=== PATIENT | male | born 1945 | race Caucasian/White ===

== ENCOUNTER → 2020-04-01 | Outpatient (CLI) | payer MEDICARE ==
[~2020-04-01] MED LIST: IODINE/POTASS IOD (LUGOLS) BOTTLE TOPICAL ONE
--- NOTE | 2020-04-02 09:30 | NM ---
EXAMINATION TYPE: NM DatScan Brain SPECT DATE OF EXAM: 04/01/2020 COMPARISON: NONE HISTORY: Essential tremor TECHNIQUE: 10 drops of Lugol's solution was administered 1 hour prior to injection as a thyroid bloc ember agent. After the administration of 4.22 mCi I-123 Ioflupane DaTscan. Images obtained 3 hours p ost injection. SPECT images of the brain were acquired with axial and coronal reconstructions. FINDINGS: There is abnormal decreased uptake within the striata. Uptake is asymmetric. IMPRESSION: Abnormal JOSE scan
== END | disposition home or self-care (01) ==
LOC: RADNMMAIN 10:51
PROVIDERS: ATTEND Psychiatry & Neurology Neurology
DX: R94.02 Abnormal brain scan (principal)
CPT/HCPCS: 78803; A9584

== ENCOUNTER → 2020-05-14 | Outpatient (CLI) | payer MEDICARE ==
--- NOTE | 2020-05-14 07:54 | CT ---
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 The ventricles, basal cisterns and sulci overlying the cerebral convexities demonstrate mild enlargem ent. There is no evidence for intracranial hemorrhage or sulcal effacement. There is decreased attenuation about the periventricular white matter and deep white matter of both c erebral hemispheres, compatible with chronic small vessel ischemia. Differential diagnosis does inclu de demyelination. No mass effects are seen.No midline shift. Osseous calvarium is intact. If symptoms persist consider MRI. IMPRESSION: 1. Age related atrophic and chronic small vessel ischemic change without acute intracranial process s een at this time.
== END | disposition home or self-care (01) ==
LOC: RADCTMAIN 06:46
PROVIDERS: ATTEND Psychiatry & Neurology Neurology
DX: I67.82 Cerebral ischemia (principal); G31.1 Senile degeneration of brain, not elsewhere classified; I61.4 Nontraumatic intracerebral hemorrhage in cerebellum
CPT/HCPCS: 70450

== ENCOUNTER → 2021-12-01 | Outpatient (CLI) | payer MEDICARE ==
[2021-12-01 11:21] LABS: Partial Thromboplastin Time 25.7 sec (22.0-30.0); Prothrombin Time 10.9 sec (9.0-12.0)
[2021-12-01 15:36] LABS: Appearance,Urine Clear (Clear); Bilirubin,Urine Negative (Negative); Blood,Urine Negative (Negative); Color,Urine Yellow (Yellow); Ketones,Urine Negative (Negative); Nitrite,Urine Negative (Negative); PH, Urine 5.5 (5.0-8.0); Specific Gravity,Urine 1.017 (1.001-1.030); Urobilinogen,Urine 0.2 (0.2,1.0)
[2021-12-01 16:13] LABS: HCT 47.2 % (39.6-50.0); HGB 15.8 g/dL (13.0-17.0); MCH 30.2 pg (27.0-32.0); MCHC 33.5 g/dL (32.0-37.0); MCV 90.2 fL (80.0-97.0); Mean Platelet Volume 10.2 fL (9.5-12.2); NRBC Per 100 WBC 0 /100 WBCS (0.0-0.0); Platelet Count 156 X 10*3/uL (140-440); RBC 5.23 X 10*6/uL (4.40-5.60); RDW 12.8 % (11.5-14.5); WBC 6.43 X 10*3/uL (4.50-10.00)
[2021-12-01 17:05] LABS: Albumin 4.2 g/dL (3.8-4.9); Albumin/Globulin Ratio 1.66 (1.60-3.17); Anion Gap 12.6 mmol/L (10.00-18.00); BUN/Creat Ratio 16.01 Ratio (12.00-20.00); Blood Urea Nitrogen 22.9 mg/dL (9.0-27.0); Calcium 9.7 mg/dL (8.7-10.3); Carbon Dioxide 22.6 mmol/L (20.0-27.5); Globulin 2.5 g/dL (1.6-3.3); Non-African American GFR(CKD) 46.6 (60.0-200.0); Potassium 4.4 mmol/L (3.5-5.5); Total Bilirubin 0.6 mg/dL (0.30-1.20); Total Protein 6.8 g/dL (6.2-8.2)
== END | disposition home or self-care (01) ==
LOC: LABPAT 10:07
PROVIDERS: ATTEND Orthopaedic Surgery
DX: Z01.818 Encounter for other preprocedural examination (principal); M17.12 Unilateral primary osteoarthritis, left knee
CPT/HCPCS: 80053; 81003; 85027; 85610; 85730; 87070; 93005

== ENCOUNTER → 2021-12-13 | Outpatient (CLI) | payer MEDICARE ==
--- NOTE | 2021-12-13 15:53 | CT ---
CT left lower extremity [facility] protocol HISTORY: Preop left knee arthroplasty, osteoarthritis left knee, M 17.12 Helical acquisition obtained through the left lower extremity in a limited fashion. Coronal sagittal reconstructions performed. Automated exposure control for dose reduction. DLP 553.4 mCi centimeters. No comparisons Incidental note made of a left inguinal hernia which contains bowel. Prostate is enlarged. There are associated calcifications. Osteoarthritic changes noted in the left hip. Left knee shows tricompartmental marginal spurring, sub chondral geode formation, subchondral sclerosis, joint space loss present in the medial compartment. No evident fracture. Osteoarthritic change noted at the ankle. There is a plantar calcaneal spur. Degenerative changes are present at the intertarsal joints. IMPRESSION: Osteoarthritis, exam performed for procedure planning purposes. Additional findings above .
== END | disposition home or self-care (01) ==
LOC: RADCTMAIN 14:21
PROVIDERS: ATTEND Orthopaedic Surgery
DX: Z01.818 Encounter for other preprocedural examination (principal); M17.12 Unilateral primary osteoarthritis, left knee

== ENCOUNTER 2021-12-21 13:59 | Day surgery (SDC) | payer MEDICARE ==
[~2021-12-21 13:59] MED LIST changes: +ACETAMINOPHEN TAB 500 MG TAB PO PRN; +DEXAMETHASONE SOD PHOSPHATE 10 MG/ML 1 ML VIAL IV PRN; +DEXAMETHASONE SOD PHOSPHATE 4 MG/ML 1 ML VIAL IV ONE; +DOCUSATE 100 MG CAP PO PRN; +FAMOTIDINE 20 MG/2 ML VIAL IVP PRN; +HYDROmorphone 0.5 MG/0.5 ML SYRINGE IVP PRN; -IODINE/POTASS IOD (LUGOLS) BOTTLE TOPICAL ONE; +KETOROLAC 15 MG/ML 1 ML VIAL IVP PRN; +LIDOCAINE 1% (10MG/ML) FOR IV START INTRADERMA PRN; +ONDANSETRON 4 MG/2 ML VIAL IVP PRN; +TRANEXAMIC ACID 1,000 MG in SODIUM CHLORIDE 0.9% 100 ML IVPB ONE; +TRANEXAMIC ACID IN NACL,ISO-OS 1,000 MG in SALINE 1 100ML.BAG IVPB PRN; +oxyCODONE ER 10 MG TAB.ER.12H PO PRN
[2021-12-21] MEDS: LACTATED RINGERS 1,000 ML IV SCH (14:13)
[2021-12-21] MEDS ORDERED: fentaNYL (PF) 50 MCG/ML 2 ML AMP IVP ONE (15:07)
[2021-12-21] MEDS ORDERED: MIDAZOLAM 2 MG/2 ML VIAL IVP ONE (15:07)
[2021-12-21] MEDS ORDERED: LIDOCAINE 2% INJ 20 MG/ML (2 ML VIAL) ONE (15:50)
[2021-12-21] MEDS ORDERED: SUCCINYLCHOLINE CHLORIDE 200 MG/10 ML VIAL IV ONE (15:50)
[2021-12-21] MEDS ORDERED: MIDAZOLAM HCL 10 MG/10 ML VIAL ONE (15:50)
[2021-12-21] MEDS ORDERED: ROPIVACAINE 5 MG/ML 30 ML VIAL ONE (15:50)
[2021-12-21] MEDS ORDERED: SODIUM CHLORIDE 0.9% (PF) 10 ML VIAL ONE (15:50)
[2021-12-21] MEDS ORDERED: fentaNYL (PF) 50 MCG/ML 2 ML AMP ONE (15:50)
[2021-12-21] MEDS ORDERED: PROPOFOL 10 MG/ML 20 ML VIAL IV ONE (15:50)
[2021-12-21] MEDS ORDERED: LACTATED RINGERS 1,000 ML IV ONE (16:48)
[2021-12-21] MEDS: ROPIVACAINE/EPI/CLONIDINE/KET 50 ML SYRINGE MISCELLANE PRN ×2 (16:49→17:19)
--- NOTE | 2021-12-21 18:17 | P.ANPRN ---
Procedure Note - Anesthesia - Nerve Block Performed Left Adductor Canal Time Out Performed: Yes (15:06) Date of Procedure: 12/21/21 Procedure Start Time: : Procedure Stop Time: 15:14 Location of Patient: PreOp Indication: Acute Post-Operative Pain, Requested by Surgeon (Dr Sanchez) Preparation: Sterile Prep Position: Supine Catheter: None Needle Types: Pajunk Needle Gauge: 21 Ultrasound used to visualize needle placement: Yes Ultrasound used to observe medication spread: Yes Injectate: 0.5% Ropivacaine (see comment for volume) (15cc) Blood Aspirated: No Pain Paresthesia on Injection Noted: No Resistance on Injection: Normal Image Stored and Saved: Yes Events: Uneventful and Well Tolerated
--- NOTE | 2021-12-21 18:19 | P.ANPRN ---
Procedure Note - Anesthesia - Nerve Block Performed Left iPack Time Out Performed: Yes Date of Procedure: 12/21/21 Procedure Start Time: 15:15 Procedure Stop Time: 15:21 Location of Patient: PreOp Indication: Acute Post-Operative Pain, Requested by Surgeon (Dr Sanchez) Sedation Type: Sedate with meaningful contact maintained Preparation: Sterile Prep Position: Supine Catheter: None Needle Types: Pajunk Needle Gauge: 21 Ultrasound used to visualize needle placement: Yes Ultrasound used to observe medication spread: Yes Injectate: 0.5% Ropivacaine (see comment for volume) (15cc +5cc PF Normal saline) Blood Aspirated: No Pain Paresthesia on Injection Noted: No Resistance on Injection: Normal Image Stored and Saved: Yes Events: Uneventful and Well Tolerated
[2021-12-21] MEDS ORDERED: NALOXONE 0.4 MG/ML 1 ML VIAL IV PRN (19:22)
[2021-12-21] MEDS ORDERED: HYDROcodone/APAP 5-325MG 1 EACH TAB PO PRN ×2 (19:22)
[2021-12-21] MEDS ORDERED: HYDROmorphone 0.5 MG/0.5 ML SYRINGE IVP PRN ×3 (19:22)
[2021-12-21] MEDS ORDERED: hydrOXYzine pamoate 25 MG CAP PO PRN (19:22)
--- NOTE | 2021-12-21 19:50 | XR ---
EXAMINATION TYPE: XR knee limited LT DATE OF EXAM: 12/21/2021 7:44 PM INDICATION: Patient age:Male; 76 years old; Reason for study: Evaluation for Postop abnormality and alignment; COMPARISON: None. TECHNIQUE: The Left knee(s) was examined in 3 projections. Frontal, lateral and oblique. FINDINGS: Left total knee arthroplasty changes, hardware appears intact. No evidence of fracture. Al ignment appears appropriate. Subcutaneous lucencies along the anterior soft tissues most pronounced i n the anterior proximal thigh. Drainage catheter noted. Hardware appears in No evidence of any acute osseous pathology, joint space narrowing, soft tissue swelling, or joint effusion is noted. IMPRESSION: Post left knee arthroplasty changes with subcutaneous gas along the anterior aspect of the proximal l eg and distal radial. Correlate for infection.
--- NOTE | 2021-12-21 19:56 | P.OP ---
Date of Procedure: 12/21/21 Preoperative Diagnosis: 1. Severe varus knee arthritis, left knee 2. Parkinson's disease Postoperative Diagnosis: Same Procedure(s) Performed: Left total knee arthroplasty Implants: 1. [place] Triathlon CR Femur Size #6 2. [place] Triathlon Grulla Tibial Base Size #6 3. [place] Triathlon CS poly Size #10 4. [place] Triathlon all poly patella, Size #35 Anesthesia: GETA, spinal Surgeon: Jaquan Sanchez Senior Program Manager #1: Wilfrido Hdz Estimated Blood Loss (ml): 200 IV fluids (ml): 1,200 Pathology: none sent Condition: stable Disposition: PACU Indications for Procedure: I met with the patient preoperatively in the office setting and discussed treatment of their symptomatic knee arthritis. They failed a long course of nonsurgical treatment and elected to proceed with an elective total knee r eplacement. I discussed the potential risks and complications at length and gave them ample time to ask questions. Risks discussed included: risks from anesthesia, superficial site surgical infection, acute and/or chronic periprosthetic joint infection, delayed wound healing, drainage, wound necrosis, instability, stiffness, stiffness requiring manipulation and/or revision surgery, damage to local blood vessels or nerves, aseptic loosening of the implants, extensor mechanism issues including disruption, patellar maltracking, avascular necrosis etc., continued or worsened knee pain, generalized dissatisfaction with surgical outcome, need for revision surgery, an inability to regain preinjury level of function, DVT, PE, other medical complications, and possibly loss of life or limb. The patient voiced their understanding that while these are the most common complications other less common complications are possible. They provided both their verbal and written consent to go forward with surgery. Operative Findings: After completion of the procedure, but before the final dressing had been placed on the incision I broke scrub. Upon reviewing the implant sheet it was discovered that a right femoral implant was dispensed and had been placed on the patient's left knee. After the dressing was on the knee appeared straight, well-balanced, and the patella tracked midline. I notified anesthesia and told them to keep the patient under anesthesia so I could speak with the family. I immediately spoke with the patient's son Christiano in person. The patient's other son Agustín was called and was placed on speaker phone. I immediately disclosed the mistake to both Christiano and Agustín. We discussed treatment options including revising the right femoral component to a left femoral component versus observation. I offered to revise the femoral implant immediately if they chose as the patient was still under anesthesia. We discussed the main issue would be patellar maltracking, but the patient's patella appeared to track midline. I also spoke with 2 of my mentors from fellowship. I also found a case report of a similar complication where the wrong sided femoral implant was placed during a total knee replacement and the case report showed that the patient did well and was not revised at 5 years (Andressa Lozano et al. Total Knee Arthroplasty Wrong Side Implant. Surg J ([place]). 2018 Nov; 4(3):[id number]-a036). All of this was disclosed to the patient's sons. They were given time to make a decision. Since the patient had excellent balance and patellar tracking and the only potential downside given the triathlon design would be patellar tracking we all agreed to leave the implant in place. A shared decision was made between the patient's son's and myself. The patient's son's requested observation. Description of Procedure: The patient was identified in preoperative holding and the correct operative extremity was verified and marked with a marker. I reviewed the consent form with the patient at length. All of their questions were answered. The patient was given a block by anesthesia. They were then brought back to the operating room. They were transferred onto the operating room table where a general anesthetic, preoperative antibiotics, and tranexamic acid were administered by anesthesia. A tourniquet was applied to the proximal aspect of the operative extremity. The contralateral extremity was padded under the heel and secured to the operating room table with a nonsterile blue towel and tape. The ipsilateral arm was carefully draped across the patient's chest and secured with a pillow and foam. A post was applied over the lateral aspect of the ipsilateral thigh and a bolster was placed under the ipsilateral foot. I verified that the operative extremity was stable and the knee was flexed to 90. The operative extremity was then placed in a leg barr, nonsterile drapes were applied, and the extremity was prepped and draped sterilely in the standard sterile fashion. Prior to starting surgery timeout was performed identifying the correct patient, operative extremity, and procedure. The leg was then elevated, exsanguinated with an Esmarch bandage, and the tourniquet was inflated. An anterior midline incision was made sharply with a scalpel. Once I had dissected deep to the superficial fascial layer medial and lateral flaps were elevated. A medial parapatellar arthrotomy was created. Upon opening the knee joint there were diffuse arthritic changes in all 3 compartments. The anterior horn of the medial meniscus were sharply released and a medial release was performed around the posterior medial corner of the knee to facilitate retractor placement. The fat pad was excised with electrocautery. The patella was found to be severely arthritic and a provisional cut was made with a sagittal saw to facilitate mobilization of the extensor mechanism during the procedure. Remnants of the ACL and PCL were then excised from the notch. 4 mm pins were then placed within the incision in the medial distal femur and proximal tibia. Arrays were applied to the pins and I verified they were completely tightened. The knee was then registered with the [employer] robot and manipulations in implant position were made to balance the knee and opitmize implant position. Using the Louie robotic saw all cuts were made in accordance with our plan. After all bony fragments had been removed the cuts were verified with the planar probe. The tibia was then subluxed forward and sized. The knee was brought into flexion and a lamina rubber tire and tubes supervisor was placed to allow removal of the meniscal remnants both medially and laterally as well as posterior osteophytes. Local anesthetic was then infiltrated around the joint capsule. Trial implants were then placed within the knee. Range of motion and collateral ligament tension was then evaluated. Adjustments in implant size and position were then made accordingly. Once the knee was felt to be appropriately balanced the Louie pins were removed. The patella was then recut, sized, and punched. A trial patellar button was then placed. With the trial components in place, the patella tracked midline. The femur was then drilled and the trial component removed. The trial tibial component was then appropriately rotated, pinned, and prepared for the keel. All trial components were then removed from the knee. The knee was thoroughly irrigated with pulsatile lavage. Cement was prepared via vacuum mixing in a bowl on the back table. I then hand pressurized cement into the femur and tibia and placed the implants beginning with the tibial base tray and poly liner, femoral component, and finally the patellar button. All extruded cement was removed including from the pin sites. Once the cement had hardened the knee was evaluated one final time with the final polyethylene liner in place. The knee had full extension and flexion and felt stable to varus and valgus stress throughout the arc of motion. The tourniquet was released and with the tourniquet down the patella tracked midline. All bleeders were controlled with electrocautery. The knee was then soaked for 3 minutes with a dilute Betadine soak. The knee was thoroughly irrigated using 3 L of sterile saline and pulsatile lavage. A deep drain was placed. The extensor mechanism was then reapproximated using pop off Vicryl sutures followed by a running barbed suture. The knee was then closed in layers with a 0 strata fix for the deep fascial layer, 2-0 strata fix for the superficial subcutaneous layer and Monocryl and Steri-Strips for the skin. A sterile dressing and drain sponge were applied. I verified that all instrument, sponge, and sharp counts were correct. The patient was then transferred off the operating room table, extubated, and brought to recovery having tolerated the procedure well. Wilfrido Hdz PA-C was required as a skilled anesthesiologist assistant certified due to the complexity of the procedure for patient positioning, draping, retraction, placement of hardware, and closure of wound. PLAN: The patient can weight-bear as tolerated on the operative extremity. DVT prophylaxis with aspirin 81 mg twice a day based on preoperative risk stratification. Follow-up in the office in 2 weeks for wound check and x-rays of the knee including an AP and lateral.
[2021-12-21] MEDS ORDERED: ALPRAZolam 0.25 MG TAB PO PRN (21:37)
[2021-12-21] MEDS: CARBIDOPA-LEVODOPA 25-100 MG 1 EACH TAB PO SCH (22:43)
[2021-12-21] MEDS: ASPIRIN 81 MG PO SCH (22:43)
[2021-12-21] MEDS: SENNOSIDES-DOCUSATE SODIUM 1 EACH TAB PO SCH (22:43)
[2021-12-21] MEDS: METOPROLOL TARTRATE 25 MG TAB PO SCH ×2 (22:45→22:50)
[2021-12-22] MEDS: LOSARTAN 50 MG TAB PO SCH (07:55)
[2021-12-22] MEDS: ASPIRIN 81 MG PO SCH ×2 (07:55→22:01)
[2021-12-22] MEDS: METOPROLOL TARTRATE 25 MG TAB PO SCH ×2 (07:56→22:02)
[2021-12-22] MEDS: CARBIDOPA-LEVODOPA 25-100 MG 1 EACH TAB PO SCH ×3 (07:57→22:01)
[2021-12-22 08:43] LABS: Basophils # (A) 0.01 X 10*3/uL (0.00-0.10); Basophils % (A) 0.1 %; Eosinophils # (A) 0 X 10*3/uL (0.04-0.35); Eosinophils % (A) 0 %; HCT 41.8 % (39.6-50.0); HGB 13.5 g/dL (13.0-17.0); Immature Grans, Automated 0.3 %; Lymphocytes # (A) 0.71 X 10*3/uL (0.90-5.00); MCH 29.4 pg (27.0-32.0); MCHC 32.3 g/dL (32.0-37.0); MCV 91.1 fL (80.0-97.0); Monocytes # (A) 0.52 X 10*3/uL (0.20-1.00); Monocytes % (A) 4.4 %; NRBC Per 100 WBC 0 /100 WBCS (0.0-0.0); Neutrophils % (A) 89.2 %; Platelet Count 154 X 10*3/uL (140-440); RBC 4.59 X 10*6/uL (4.40-5.60); RDW 12.7 % (11.5-14.5); WBC 11.88 X 10*3/uL (4.50-10.00)
[2021-12-22] MEDS: hydroCHLOROthiazide 12.5 MG CAP PO SCH (08:45)
[2021-12-22] MEDS ORDERED: hydroCHLOROthiazide 12.5 MG CAP PO SCH (09:00)
--- NOTE | 2021-12-22 09:35 | P.PN ---
Subjective Progress Note Date: 12/22/21 This patient is a 76-year-old male who is status-post left total knee arthroplasty on 12/21/21. Today is post-operative day #1. The patient is examined bedside. He is up to the bedside chair. He states he is expressing minimal pain in the left knee. He is ambulating with a walker with minimal assistance. He is doing well this morning. He denies chest pain, shortness breath, nausea, vomiting. Vital signs stable. Objective - Vital Signs Vital signs: Vital Signs Temp 97.7 F 12/22/21 07:59 Pulse 94 12/22/21 07:59 Resp 18 12/22/21 01:09 BP 99/68 12/22/21 07:59 Pulse Ox 95 12/22/21 07:59 FiO2 Intake & Output 12/21/21 12/22/21 12/22/21 18:59 06:59 18:59 Intake Total 1850 0 Output Total 50 Balance 1800 0 Weight 83.7 kg 83.7 kg Intake: IV 1850 0 Output: Estimated Blood Loss 50 Other: # Voids 1 1 - Exam On examination, patient is sitting up in the bedside chair in no apparent distress. He is alert and oriented 3. On inspection of the left knee, there is a clean, dry, intact OpSite dressing in place. No bleeding or drainage through the dressing. Hemovac drain in place. Very mild swelling of the knee. Motor and sensory function is intact of the left lower extremity. Left lower extremity warm and well perfused with brisk capillary refill distally. Calf is nontender. - Labs CBC & Chem 7: 12/22/21 03:41 Labs: Abnormal Lab Results - Last 24 Hours (Table) 12/22/21 Range/Units 03:41 WBC 11.88 H (4.50-10.00) X 10*3/uL Neutrophils # 10.60 H (1.80-7.70) X 10*3/uL Lymphocytes # 0.71 L (0.90-5.00) X 10*3/uL Eosinophils # 0 L (0.04-0.35) X 10*3/uL Assessment and Plan Assessment: Status-post left total knee arthroplasty on 12/21/21. Post-operative day #1. Plan: - Weightbearing as tolerated on the operative extremity with a walker. - Physical therapy for gait and balance training. - Leave post-operative dressings intact. Hemovac drain will be left in place until tomorrow. - Keep left knee elevated for swelling and pain control. - Aspirin 81mg BID for DVT prophylaxis. - Internal medicine for rm-operative medical management. - Anticipate discharge home with home health care tomorrow.
--- NOTE | 2021-12-22 14:11 | CONS ---
CONSULTATION DATE OF SERVICE: 12/22/2021 REASON FOR CONSULTATION: Advice regarding hypertension and multiple medical issues, requested by Orthopedic Surgery. HISTORY OF PRESENT ILLNESS: This 76-year-old gentleman with a past medical history of hypertension and multiple medical problems was admitted after left total knee joint arthroplasty. The patient tolerated the procedure well. There is no history of any fever, rigor or chills at this time. White count is slightly elevated at 11.38, possibly post-surgical. PAST MEDICAL HISTORY: Reviewed. It includes hypertension. HOME MEDICATIONS: Again reviewed. They include amantadine, olmesartan. Doses and the rest of the medications are noted. ALLERGIES: NONE. FAMILY HISTORY: No history of heart disease or strokes in the family. SOCIAL HISTORY: Previous history of smoking. REVIEW OF SYSTEMS: Fourteen-point review of systems negative except as mentioned earlier. PHYSICAL EXAMINATION: Pulse is 80, blood pressure 140/70, respiration 18. HEENT: Conjunctivae normal. NECK: No jugular venous distention. CARDIOVASCULAR: S1, S2 muffled. RESPIRATION: Breath sounds diminished at the bases. ABDOMEN: Soft, nontender. LEGS: Status post knee surgery. NERVOUS SYSTEM: No focal deficit. SKIN: No ulcer, rash, bleeding. JOINTS: As mentioned earlier. LABS: Reviewed. WBC 11.38. ASSESSMENT: 1. Status post left total knee arthroplasty. 2. Hypertension. 3. Parkinson's disease. RECOMMENDATIONS AND DISCUSSION: In this 76-year-old gentleman who presented with multiple medical issues, I would recommend to continue the current medications, continue the home medications. DVT prophylaxis. Pain management per Orthopedic Surgery. Closely follow with primary physician in the outpatient setting. Further recommendations to follow. MMODL / IJN: [id number] /
[2021-12-22] MEDS: LACTATED RINGERS 1,000 ML IV SCH (17:32)
[2021-12-22] MEDS: SENNOSIDES-DOCUSATE SODIUM 1 EACH TAB PO SCH (22:01)
[2021-12-23 07:48] VITALS: BP 112/71; PULSE 75; RESP 18; TEMP 98.1
[2021-12-23] MEDS: ASPIRIN 81 MG PO SCH (08:25)
[2021-12-23] MEDS: CARBIDOPA-LEVODOPA 25-100 MG 1 EACH TAB PO SCH (08:26)
[2021-12-23] MEDS: hydroCHLOROthiazide 12.5 MG CAP PO SCH (08:26)
[2021-12-23] MEDS: METOPROLOL TARTRATE 25 MG TAB PO SCH (08:26)
[2021-12-23] MEDS: LOSARTAN 50 MG TAB PO SCH (08:28)
--- NOTE | 2021-12-23 08:58 | P.DS ---
Providers Expected date of discharge: 12/23/21 Attending physician: Jaquan Sanchez Consults: 12/21/21 19:22 Consult Physician Routine Consulting Provider: Maryam Mariscal Consult Reason/Comments: medical management Do you want consulting provider notified?: Yes Primary care physician: José Santizo [place] [facility] Course: This is a 76-year-old male who has been followed in our office by Dr. Sanchez for continued complaints of left knee pain due to left knee osteoarthritis. Treatment options were discussed, and patient elected to undergo a left total knee arthroplasty. Patient was seen pre-operatively by Dr. Santizo and cleared for surgery. Patient underwent a left total knee arthroplasty on 12/21/[address] Sanchez. The procedure was performed without complication or sequelae. The patient is doing fairly well postoperatively. Vital signs and labs are stable on postoperative day #2. Patient was examined bedside today. Patient states he is overall doing very well and the pain in his left knee is well-controlled. He has been ambulating with a walker with minimal assistance. Patient is tolerating his diet well. Patient is comfortable being discharged home today. Patient denies chest pain, shortness of breath, nausea, vomiting, fevers, chills. On examination, the patient is sitting up in bed in no apparent distress. He is alert and orientated 3. On inspection of the left knee, there is a clean, dry, intact Opsite dressing in place. Hemovac drain was removed bedside this morning and a new dressing was placed over the drain site. There is no bleeding or drainage the dressing. Patient has good strength and ROM of the left ankle and toes. Motor and sensory function is intact of the left lower extremity. The dorsalis pedis pulse is easily palpable, the left lower extremity is warm and well perfused with brisk capillary refill. Calf is soft and non-tender to palpation. Patient is discharged home with home health care today in good condition, pending medical clearance. Patient will follow-up with Dr. Sanchez in the office in 2 weeks. Please see med rec for accurate list of discharge medication. Plan - Discharge Summary Discharge Rx Participant: Yes New Discharge Prescriptions: New Docusate [Colace] 100 mg PO BID #60 capsule HYDROcodone/APAP 5-325MG [[place] 5-325] 1 - 2 tab PO Q6HR PRN 7 Days #40 tab PRN Reason: Pain Aspirin 81 mg PO BID 30 Days #60 tab Omeprazole 40 mg PO DAILY 30 Days #30 cap No Action Olmesartan/Hydrochlorothiazide [Olmesartan-Hctz 40-12.5 mg Tab] 1 tab PO QAM Carbidopa/Levodopa [Carbidopa-Levodopa 25-100 Tab] 1 tab PO TID amantadine HCL [Amantadine] 100 mg PO TID ALPRAZolam [Xanax] 0.25 mg PO DAILY PRN PRN Reason: Anxiety Metoprolol Tartrate [Lopressor] 25 mg PO BID Discharge Medication List ALPRAZolam [Xanax] 0.25 mg PO DAILY PRN 12/19/21 [History] Carbidopa/Levodopa [Carbidopa-Levodopa 25-100 Tab] 1 tab PO TID 12/19/21 [History] Metoprolol Tartrate [Lopressor] 25 mg PO BID 12/19/21 [History] Olmesartan/Hydrochlorothiazide [Olmesartan-Hctz 40-12.5 mg Tab] 1 tab PO QAM 12/19/21 [History] amantadine HCL [Amantadine] 100 mg PO TID 12/19/21 [History] Aspirin 81 mg PO BID 30 Days #60 tab 12/23/21 [Rx] Docusate [Colace] 100 mg PO BID #60 capsule 12/23/21 [Rx] HYDROcodone/APAP 5-325MG [[place] 5-325] 1 - 2 tab PO Q6HR PRN 7 Days #40 tab 12/23/21 [Rx] Omeprazole 40 mg PO DAILY 30 Days #30 cap 12/23/21 [Rx] Follow up Appointment(s)/Referral(s): [facility] [[facility]] - 1-2 Days ([facility] will call you to schedule your in home physical therapy visits. ) Jaquan Sanchez MD [Medical Doctor] - 01/05/22 1:00 pm Activity/Diet/Wound Care/Special Instructions: Weight bear as tolerated on operative extremity with walker. Keep operative dressing intact until follow-up appointment in the office. Call the office if dressing becomes saturated or falls off. Take pain medications as prescribed. Take aspirin 81mg BID x 4 weeks for blood clot prevention. Follow-up with Dr. Sanchez in the office in two weeks. Call the office with any questions or concerns, Discharge Disposition: HOME WITH HOME HEALTH SERVICES
--- NOTE | 2021-12-23 18:06 | P.PN ---
Subjective Progress Note Date: 12/23/21 This is a 76 year old male admitted under orthopedic services and is status post left knee total arthroplasty. Patient reports he is being discharged today and awaiting his son to come pick him up. Patient is afebrile and denies chest pain or shortness of breath. Patient is tolerating diet and denies nausea or vomiting. Patient did have a bowel movement yesterday. Patient with some mild left lower extremity swelling noted on exam and patient encouraged to elevate lower extremities while a rest, monitor fluid intake, and follow up with primary care provider this week. Review of systems: Constitutional: No reports of fatigue, fever, or chills Cardiovascular: No reports of chest pain or palpitations Respiratory: No reports of shortness of breath or cough GI: reports of nausea, no reports of of vomiting, patient reports bowel movement : No reports of dysuria or retention Neurovascular: no reports of generalized weakness All medications have been reviewed PHYSICAL EXAMINATION: GENERAL: The patient is alert and oriented x4, Well developed, well nourished. HEENT: Pupils are round and equally reacting to light. EOMI. no scleral icterus. No conjunctival pallor. Normocephalic, atraumatic. No pharyngeal erythema. No thyromegaly. CARDIOVASCULAR: S1 and S2 muffled PULMONARY: diminished breath sounds bilaterally with no wheezing or rhonchi noted. ABDOMEN: soft. Nontender on exam. obese. non-distended, normoactive bowel sounds. No palpable organomegaly. MUSCULOSKELETAL: No joint swelling or deformity. EXTREMITIES: No cyanosis, clubbing, or pedal edema. some mild bilateral lower extremity swelling noted NEUROLOGICAL: Gross neurological examination did not reveal any focal deficits. SKIN: No rashes. Assessment: Status post left total knee arthroplasty Hypertension Parkinson's Disease GI prophylaxis DVT prophylaxis Full code Plan: Recommend to continue with current medications and management with orthopedic services. Patient is status post left total knee and doing well. Patient reports to being discharged today and awaiting family to pick him up. Patient noted to have some mild left lower extremity swelling noted and surgical site is clean, dry, and intact. Patient encouraged to elevate lower extremities while at rest. Encouraged incentive incentive spirometer use at least 10 times every hour while awake. Patient encouraged to follow up with pcp on discharge. Thank you for this consultation and we will continue to follow with orthopedic surgery during hospitalization. The impression and plan of care has been dictated by Sally Brenner, nurse practitioner as directed. MD Scotty I have performed a history and examination and MDM of this patient, discussed the same with the dictator, and agree with the dictator's assessment and plan as written ,documented as a scribe. Based on total visit time, I have performed more than 50% of the visit. Any additional findings or plans will be noted. Objective - Vital Signs Vital signs: Vital Signs Temp 98.1 F 12/23/21 07:47 Pulse 75 12/23/21 07:47 Resp 18 12/23/21 07:47 BP 112/71 12/23/21 07:47 Pulse Ox 93 L 12/23/21 07:47 FiO2 Intake & Output 12/22/21 12/23/21 12/23/21 18:59 06:59 18:59 Output Total 60 125 60 Balance -60 -125 -60 Output: Drainage 60 60 Left Knee 60 60 Urine 125 Other: Voiding Method Toilet Urinal # Voids 4 - Labs CBC & Chem 7: 12/22/21 03:41
== END 2021-12-23 14:03 | disposition home health service (06) ==
LOC: OR 13:59 → 4SSUR 19:02 → OR 12-23 14:03
PROVIDERS: ATTEND Orthopaedic Surgery
DX: M17.12 Unilateral primary osteoarthritis, left knee (principal); G20 Parkinson's disease; G89.18 Other acute postprocedural pain; M21.162 Varus deformity, not elsewhere classified, left knee; I12.9 Hypertensive chronic kidney disease with stage 1 through stage 4 chronic kidney disease, or unspecified chronic kidney disease; N18.9 Chronic kidney disease, unspecified; F41.9 Anxiety disorder, unspecified; Z83.3 Family history of diabetes mellitus; Z82.49 Family history of ischemic heart disease and other diseases of the circulatory system; Z79.82 Long term (current) use of aspirin; Z79.899 Other long term (current) drug therapy; Z87.891 Personal history of nicotine dependence
CPT/HCPCS: 97530; 97161; 64447; 64999; 76942; 85025; 73560; 27447; C1776 ×2; C1713; J2250 ×2; J0330; J1100; J0690 ×2; J2405; J3010; J2795; J1885; J2704; J1170; J2001

== ENCOUNTER 2022-04-06 10:06 | Emergency (ER) | payer MEDICARE ==
[2022-04-06 10:37] VITALS: RESP 20
--- NOTE | 2022-04-06 12:39 | ED ---
Altered Mental Status HPI - General Chief Complaint: Altered Mental Status Stated Complaint: Hallucinating Time Seen by Provider: 04/06/22 12:25 Source: patient Mode of arrival: ambulatory Limitations: no limitations - History of Present Illness Initial Comments: 76-year-old male presents to the emergency department with his sister for hallucinations. Patient has a history of Parkinson's disease. He said he will see children's faces coming out of a picture that is in his house. States when he is out of his house that he does not have any hallucinations. He realizes that these hallucinations are not real. They started in October after he had knee surgery. States that they are not bothersome to him. There are not threatening. He does not have any auditory hallucinations. He told his sister about this to recommended that he get evaluated at the hospital. She was concerned for urinary tract infection. Patient has not had any changes to his medications. He denies any urinary complaints. No fevers. No head trauma. Denies history of mood disorder or other mental health issues. He has a follow- up appointment with his neurologist next month. No other alleviating, precipitating or modifying factors - Related Data Home Medications Medication Instructions Recorded Confirmed ALPRAZolam [Xanax] 0.25 mg PO DAILY PRN 12/19/21 12/21/21 Carbidopa/Levodopa 1 tab PO TID 12/19/21 12/21/21 [Carbidopa-Levodopa 25-100 Tab] Metoprolol Tartrate [Lopressor] 25 mg PO BID 12/19/21 12/21/21 Olmesartan/Hydrochlorothiazide 1 tab PO QAM 12/19/21 12/21/21 [Olmesartan-Hctz 40-12.5 mg Tab] amantadine HCL [Amantadine] 100 mg PO TID 12/19/21 12/21/21 Previous Rx's Medication Instructions Recorded Aspirin 81 mg PO BID 30 Days #60 tab 12/23/21 Docusate [Colace] 100 mg PO BID #60 capsule 12/23/21 HYDROcodone/APAP 5-325MG [Jasper 1 - 2 tab PO Q6HR PRN 7 Days #40 12/23/21 5-325] tab Omeprazole 40 mg PO DAILY 30 Days #30 cap 12/23/21 Cephalexin [Keflex] 500 mg PO Q6HR #28 cap 04/06/22 Allergies Allergy/AdvReac Type Severity Reaction Status Date / Time No Known Allergies Allergy Verified 04/06/22 10:37 Review of Systems ROS Statement: Those systems with pertinent positive or pertinent negative responses have been documented in the HPI. ROS Other: All systems not noted in ROS Statement are negative. Past Medical History Past Medical History: Hypertension Additional Past Medical History / Comment(s): Parkinson's Past Surgical History: Orthopedic Surgery Past Psychological History: No Psychological Hx Reported Smoking Status: Former smoker Past Alcohol Use History: None Reported Past Drug Use History: None Reported General Exam Limitations: no limitations General appearance: alert, in no apparent distress Head exam: Present: atraumatic, normocephalic, normal inspection Eye exam: Present: normal appearance, PERRL, EOMI. Absent: scleral icterus, conjunctival injection, periorbital swelling ENT exam: Present: normal exam, mucous membranes moist Neck exam: Present: normal inspection. Absent: tenderness, meningismus, lymphadenopathy Respiratory exam: Present: normal lung sounds bilaterally. Absent: respiratory distress, wheezes, rales, rhonchi, stridor Cardiovascular Exam: Present: regular rate, normal rhythm, normal heart sounds. Absent: systolic murmur, diastolic murmur, rubs, gallop, clicks GI/Abdominal exam: Present: soft, normal bowel sounds. Absent: distended, tenderness, guarding, rebound, rigid Extremities exam: Present: normal inspection, full ROM, normal capillary refill. Absent: tenderness, pedal edema, joint swelling, calf tenderness Back exam: Present: normal inspection Neurological exam: Present: alert, oriented X3, CN II-XII intact Psychiatric exam: Present: normal affect, normal mood Skin exam: Present: warm, dry, intact, normal color. Absent: rash Course Vital Signs 04/06/22 04/06/22 04/06/22 10:34 13:24 14:00 Temperature 97.6 F 97.1 F L 97.8 F Pulse Rate 54 L 50 L 55 L Respiratory 20 20 Rate Blood Pressure 110/74 121/55 117/68 O2 Sat by Pulse 99 98 97 Oximetry 04/06/22 04/06/22 16:00 17:21 Temperature 97 F L 98.0 F Pulse Rate 58 L 60 Respiratory 20 20 Rate Blood Pressure 120/68 126/77 O2 Sat by Pulse 98 97 Oximetry Medical Decision Making - Medical Decision Making Upon arrival patient was placed into room 27. Thorough history and physical exam was performed. Patient admits that his symptoms have been persistent for several months. I did recommend laboratory studies. Creatinine slightly increased to 2. Urinalysis does demonstrate occasional bacteria and occasional budding yeast. CT the head is negative for any acute process. I did discuss results with the patient. Recommended admission. Patient's would prefer to go home as his symptoms have been present for the past several months. His sister is at bedside and is agreeable with this plan. He does have close family to check in on him. He will be set up with home care. He needs to have repeat laboratory studies performed in one week to evaluate kidney function. Take the antibiotics as directed. Will be called with any further culture results. He needs to see his neurologist sooner. Recommends a call to make a sooner appointment. He does have an appointment with his primary care next week. If he has any new or worsening symptoms patient needs to be brought back to the emergency room for which he was agreeable. Patient discharged home in stable condition - Lab Data Result diagrams: 04/06/22 13:23 04/06/22 13:23 Lab Results 04/06/22 04/06/22 04/06/22 Range/Units 13:23 13:23 13:23 WBC 5.5 (3.8-10.6) k/uL RBC 5.38 (4.30-5.90) m/uL Hgb 16.5 (13.0-17.5) gm/dL Hct 48.9 (39.0-53.0) % MCV 90.9 (80.0-100.0) fL MCH 30.7 (25.0-35.0) pg MCHC 33.7 (31.0-37.0) g/dL RDW 13.9 (11.5-15.5) % Plt Count 122 L (150-450) k/uL MPV 8.7 Neutrophils % 72 % Lymphocytes % 19 % Monocytes % 4 % Eosinophils % 1 % Basophils % 1 % Neutrophils # 3.9 (1.3-7.7) k/uL Lymphocytes # 1.0 (1.0-4.8) k/uL Monocytes # 0.2 (0-1.0) k/uL Eosinophils # 0.1 (0-0.7) k/uL Basophils # 0.0 (0-0.2) k/uL PT 11.6 (9.0-12.0) sec INR 1.1 (<1.2) APTT 25.0 (22.0-30.0) sec Sodium 142 (137-145) mmol/L Potassium 4.6 (3.5-5.1) mmol/L Chloride 106 (98-107) mmol/L Carbon Dioxide 29 (22-30) mmol/L Anion Gap 7 mmol/L BUN 39 H (9-20) mg/dL Creatinine 2.03 H (0.66-1.25) mg/dL Est GFR (CKD-EPI)AfAm 35 (>60 ml/min/1.73 sqM) Est GFR (CKD-EPI)NonAf 31 (>60 ml/min/1.73 sqM) Glucose 95 (74-99) mg/dL Calcium 10.1 (8.4-10.2) mg/dL Total Bilirubin 0.7 (0.2-1.3) mg/dL AST 25 (17-59) U/L ALT 19 (4-49) U/L Alkaline Phosphatase 84 (38-126) U/L Troponin I (0.000-0.034) ng/mL Total Protein 6.9 (6.3-8.2) g/dL Albumin 4.5 (3.5-5.0) g/dL Urine Color Urine Appearance (Clear) Urine pH (5.0-8.0) Ur Specific [place] (1.001-1.035) Urine Protein (Negative) Urine Glucose (UA) (Negative) Urine Ketones (Negative) Urine Blood (Negative) Urine Nitrite (Negative) Urine Bilirubin (Negative) Urine Urobilinogen (<2.0) mg/dL Ur Leukocyte Esterase (Negative) Urine RBC (0-5) /hpf Urine WBC (0-5) /hpf Urine Bacteria (None) /hpf Urine Mucus (None) /hpf Urine Yeast (Budding) (None) /hpf Urine Opiates Screen (NotDetected) Ur Oxycodone Screen (NotDetected) Urine Methadone Screen (NotDetected) Ur Propoxyphene Screen (NotDetected) Ur Barbiturates Screen (NotDetected) U Tricyclic Antidepress (NotDetected) Ur Phencyclidine Scrn (NotDetected) Ur Amphetamines Screen (NotDetected) U Methamphetamines Scrn (NotDetected) U Benzodiazepines Scrn (NotDetected) Urine Cocaine Screen (NotDetected) U Marijuana (THC) Screen (NotDetected) Serum Alcohol <10 mg/dL 04/06/22 04/06/22 Range/Units 13:23 14:15 WBC (3.8-10.6) k/uL RBC (4.30-5.90) m/uL Hgb (13.0-17.5) gm/dL Hct (39.0-53.0) % MCV (80.0-100.0) fL MCH (25.0-35.0) pg MCHC (31.0-37.0) g/dL RDW (11.5-15.5) % Plt Count (150-450) k/uL MPV Neutrophils % % Lymphocytes % % Monocytes % % Eosinophils % % Basophils % % Neutrophils # (1.3-7.7) k/uL Lymphocytes # (1.0-4.8) k/uL Monocytes # (0-1.0) k/uL Eosinophils # (0-0.7) k/uL Basophils # (0-0.2) k/uL PT (9.0-12.0) sec INR (<1.2) APTT (22.0-30.0) sec Sodium (137-145) mmol/L Potassium (3.5-5.1) mmol/L Chloride (98-107) mmol/L Carbon Dioxide (22-30) mmol/L Anion Gap mmol/L BUN (9-20) mg/dL Creatinine (0.66-1.25) mg/dL Est GFR (CKD-EPI)AfAm (>60 ml/min/1.73 sqM) Est GFR (CKD-EPI)NonAf (>60 ml/min/1.73 sqM) Glucose (74-99) mg/dL Calcium (8.4-10.2) mg/dL Total Bilirubin (0.2-1.3) mg/dL AST (17-59) U/L ALT (4-49) U/L Alkaline Phosphatase (38-126) U/L Troponin I <0.012 (0.000-0.034) ng/mL Total Protein (6.3-8.2) g/dL Albumin (3.5-5.0) g/dL Urine Color Light Yellow Urine Appearance Clear (Clear) Urine pH 6.5 (5.0-8.0) Ur Specific [place] 1.015 (1.001-1.035) Urine Protein Negative (Negative) Urine Glucose (UA) Negative (Negative) Urine Ketones Negative (Negative) Urine Blood Negative (Negative) Urine Nitrite Positive (Negative) Urine Bilirubin Negative (Negative) Urine Urobilinogen <2.0 (<2.0) mg/dL Ur Leukocyte Esterase Moderate H (Negative) Urine RBC 1 (0-5) /hpf Urine WBC 30 H (0-5) /hpf Urine Bacteria Occasional H (None) /hpf Urine Mucus Rare H (None) /hpf Urine Yeast (Budding) Occasional H (None) /hpf Urine Opiates Screen Not Detected (NotDetected) Ur Oxycodone Screen Not Detected (NotDetected) Urine Methadone Screen Not Detected (NotDetected) Ur Propoxyphene Screen Not Detected (NotDetected) Ur Barbiturates Screen Not Detected (NotDetected) U Tricyclic Antidepress Not Detected (NotDetected) Ur Phencyclidine Scrn Not Detected (NotDetected) Ur Amphetamines Screen Not Detected (NotDetected) U Methamphetamines Scrn Not Detected (NotDetected) U Benzodiazepines Scrn Not Detected (NotDetected) Urine Cocaine Screen Not Detected (NotDetected) U Marijuana (THC) Screen Not Detected (NotDetected) Serum Alcohol mg/dL - EKG Data EKG Comments: EKG demonstrates sinus bradycardia with a rate of 51. QRS 82. QTC 417. Significant baseline artifact. No acute ST segment elevations or depressions interpreted the EKG myself Disposition Clinical Impression: Hallucinations, ESHA (acute kidney injury), UTI (urinary tract infection) Disposition: HOME SELF-CARE Condition: Stable Instructions (If sedation given, give patient instructions): Urinary Tract I nfection in Older Adults (ED) Additional Instructions: You need to take your medications as directed. You need a repeat blood work done in one week. Follow-up with your primary care doctor in regards to the symptoms. You'll need to see your neurologist as well. Return for any new or worsening symptoms Prescriptions: Cephalexin [Keflex] 500 mg PO Q6HR #28 cap Is patient prescribed a controlled substance at d/c from ED?: No Referrals: José Santizo III, MD [Primary Care Provider] - 04/12/22 9:30 am [facility] [NON-STAFF] - Time of Disposition: 15:33
[2022-04-06 13:32] LABS: Basophils % (A) 1 %; Eosinophils # (A) 0.1 k/uL (0-0.7); Eosinophils % (A) 1 %; HCT 48.9 % (39.0-53.0); HGB 16.5 gm/dL (13.0-17.5); Lymphocytes % (A) 19 %; MCH 30.7 pg (25.0-35.0); MCHC 33.7 g/dL (31.0-37.0); MCV 90.9 fL (80.0-100.0); Mean Platelet Volume 8.7; Monocytes # (A) 0.2 k/uL (0-1.0); Monocytes % (A) 4 %; Neutrophils # (A) 3.9 k/uL (1.3-7.7); Neutrophils % (A) 72 %; Platelet Count 122 k/uL (150-450); RBC 5.38 m/uL (4.30-5.90); RDW 13.9 % (11.5-15.5); WBC 5.5 k/uL (3.8-10.6)
[2022-04-06 13:38] LABS: INR 1.1 (<1.2); Prothrombin Time 11.6 sec (9.0-12.0)
[2022-04-06 13:46] LABS: ALT 19 U/L (4-49); AST 25 U/L (17-59); African American GFR (CKD) 35 (>60 ml/min/1.73 sqM); Albumin 4.5 g/dL (3.5-5.0); Alcohol <10 mg/dL; Alkaline Phosphatase 84 U/L (38-126); Anion Gap 7 mmol/L; Blood Urea Nitrogen 39 mg/dL (9-20); Calcium 10.1 mg/dL (8.4-10.2); Carbon Dioxide 29 mmol/L (22-30); Chloride 106 mmol/L (98-107); Glucose 95 mg/dL (74-99); Non-African American GFR(CKD) 31 (>60 ml/min/1.73 sqM); Potassium 4.6 mmol/L (3.5-5.1); Sodium 142 mmol/L (137-145); Total Bilirubin 0.7 mg/dL (0.2-1.3); Total Protein 6.9 g/dL (6.3-8.2)
--- NOTE | 2022-04-06 13:56 | CT ---
EXAMINATION TYPE: CT brain wo con DATE OF EXAM: 04/06/2022 COMPARISON: 05/14/2020 HISTORY: Altered mental status CT DLP: 1196.4 mGycm Automated exposure control for dose reduction was used. FINDINGS: The ventricles, basal cisterns and sulci overlying the cerebral convexities demonstrate moderate dege nerative change. There is no evidence for intracranial hemorrhage or sulcal effacement. There is decr eased attenuation about the periventricular white matter and deep white matter of both cerebral hemis pheres, compatible with chronic small vessel ischemia. No mass effects are seen.No midline shift. Sinuses are clear. Orbits are symmetric. Osseous calvarium is intact. Small hypodensity left basal ganglia stable compatible with remote. If symptoms persist consider MRI. IMPRESSION: DEGENERATIVE AND NONSPECIFIC WHITE MATTER CHANGES AND NO EVIDENCE OF ACUTE HEMORRHAGE OR MASS EFFECT.
[2022-04-06] MEDS ORDERED: SODIUM CHLORIDE 0.9% 500 ML 500 ML IV ONE (14:06)
[2022-04-06] MEDS ORDERED: SODIUM CHLORIDE 0.9% 1,000 ML IV SCH (14:15)
[2022-04-06 14:36] LABS: Appearance,Urine Clear (Clear); Bacteria,Urine Occasional /hpf; Bilirubin,Urine Negative (Negative); Blood,Urine Negative (Negative); Budding Yeast,Urine Occasional /hpf; Color,Urine Light Yellow; Glucose,Urine (UA) Negative (Negative); Ketones,Urine Negative (Negative); Leukocyte Esterase,Urine Moderate (Negative); Mucus,Urine Rare /hpf; Nitrite,Urine Positive (Negative); PH, Urine 6.5 (5.0-8.0); Protein,Urine Negative (Negative); RBC,Urine 1 /hpf (0-5); Specific Gravity,Urine 1.015 (1.001-1.035); Urobilinogen,Urine <2.0 mg/dL (<2.0); WBC,Urine 30 /hpf (0-5)
[2022-04-06 14:59] LABS: Amphetamine Screen,Urine Not Detected (NotDetected); Barbiturate Screen,Urine Not Detected (NotDetected); Benzodiazepines Screen,Urine Not Detected (NotDetected); Cocaine Screen,Urine Not Detected (NotDetected); Methadone Screen, Urine Not Detected (NotDetected); Opiate Screen,Urine Not Detected (NotDetected); Oxycodone Screen, Urine Not Detected (NotDetected); Phencyclidine Screen,Urine Not Detected (NotDetected); Tricyclic Antidepressant,Urine Not Detected (NotDetected); Urn Cannabinoid Scrn Not Detected (NotDetected)
[2022-04-06] MEDS ORDERED: FLUCONAZOLE 150 MG TAB PO STA (15:31)
[2022-04-06] MEDS ORDERED: cefTRIAXone IN SWFI 1,000 MG/10 ML SYRINGE IVP STA (15:31)
[2022-04-06 17:22] VITALS: BP 126/77; PULSE 60; TEMP 98
== END 2022-04-06 16:41 | disposition home or self-care (01) ==
LOC: EC 10:06
DX: R44.3 Hallucinations, unspecified (principal); N17.9 Acute kidney failure, unspecified; N39.0 Urinary tract infection, site not specified; I10 Essential (primary) hypertension; Z87.891 Personal history of nicotine dependence; Z79.82 Long term (current) use of aspirin; Z79.899 Other long term (current) drug therapy
CPT/HCPCS: 36415; 93005; 80053; 84484; 85025; 85610; 85730; 81001; 80306; 70450; 99285; 96374; 96361; G0480; J0696; 80320

== ENCOUNTER 2023-06-13 15:48 | Inpatient (IN) | payer MEDICARE ==
--- NOTE | 2023-06-13 17:32 | ED ---
General Adult HPI - General Chief complaint: Altered Mental Status Stated complaint: Hallucinations Time Seen by Provider: 06/13/23 15:49 Source: EMS Mode of arrival: EMS Limitations: altered mental status - History of Present Illness Initial comments: Dictation was produced using [employer] dictation software. please excuse any grammatical, word or spelling errors. Chief Complaint: 77-year-old male presents to the ER for altered mental status History of Present Illness: Patient is a 77-year-old male he is brought in from home for hallucinations. Son at the bedside states that patient has been having hallucinations for the last several weeks. Hallucinations have been evaluated by primary care doctors. He has an alkaline point with neurologist. Patient's symptomatology has been acutely worsening. He is lives at home by himself having significant hallucinations. Patient states that he sees people in his house that told him negative things EKG should or he should kill himself. Patient denies any chest pain. Sugars of the constitutional symptoms. The ROS documented in this emergency department record has been reviewed and confirmed by me. Those systems with pertinent positive or negative responses have been documented in the HPI. All other systems are other negative and/or noncontributory. - Related Data Home Medications Medication Instructions Recorded Confirmed Carbidopa/Levodopa 1 tab PO QID 12/19/21 06/13/23 [Carbidopa-Levodopa 25-100 Tab] Metoprolol Tartrate [Lopressor] 25 mg PO BID 12/19/21 06/13/23 Olmesartan/Hydrochlorothiazide 1 tab PO DAILY 12/19/21 06/13/23 [Olmesartan-Hctz 40-12.5 mg Tab] amantadine HCL [Amantadine] 100 mg PO TID 12/19/21 06/13/23 Dorzolamide-Timol 2.23%/0.68% 1 drop LEFT EYE BID 06/13/23 06/13/23 [Cosopt] Latanoprost [Latanoprost 0.005%] 1 drop BOTH EYES HS 06/13/23 06/13/23 Allergies Allergy/AdvReac Type Severity Reaction Status Date / Time No Known Allergies Allergy Verified 06/13/23 18:05 Review of Systems ROS Statement: Those systems with pertinent positive or pertinent negative responses have been documented in the HPI. ROS Other: All systems not noted in ROS Statement are negative. Past Medical History Past Medical History: Hypertension Additional Past Medical History / Comment(s): Parkinson's Past Surgical History: Orthopedic Surgery Past Psychological History: No Psychological Hx Reported Smoking Status: Former smoker Past Alcohol Use History: None Reported Past Drug Use History: None Reported General Exam - General Exam Comments Initial Comments: PHYSICAL EXAM: General Impression: Alert and oriented x3, not in acute distress HEENT: Normocephalic atraumatic, extra-ocular movements intact, pupils equal and reactive to light bilaterally, mucous membranes moist. Cardiovascular: Heart regular rate and rhythm Chest: Able to complete full sentences, no retractions, no tachypnea Abdomen: abdomen soft, non-tender, non-distended, no organomegaly Musculoskeletal: Pulses present and equal in all extremities, no peripheral edema Motor: no focal deficits noted Neurological: CN II-XII grossly intact, no focal motor or sensory deficits noted Skin: Intact with no visualized rashes Psych: Normal affect and mood Limitations: altered mental status Course Vital Signs 06/13/23 06/13/23 15:58 18:00 Temperature 97.2 F L Pulse Rate 110 H 75 Respiratory 18 18 Rate Blood Pressure 137/107 142/97 O2 Sat by Pulse 97 97 Oximetry EKG Findings - EKG Comments: EKG Findings:: My EKG interpretation: Ventricular rate 99, sinus rhythm,. Interval 200, QRS 93, QTC 395. No [place] prolongation, no QTC prolongation, no ST or T-wave changes noted. . Overall, this EKG is unremarkable Medical Decision Making - Medical Decision Making Was pt. sent in by a medical professional or institution (, PA, HAND SUTURE WINDER, urgent care, hospital, or longterm...) When possible be specific @ -No Did you speak to anyone other than the patient for history (EMS, parent, family, police, friend...)? What history was obtained from this source @ -No Did you review nursing and triage notes (agree or disagree)? Why? @ -I reviewed and agree with nursing and triage notes Were old charts reviewed (outside hosp., previous admission, EMS record, old EKG, old radiological studies, urgent care reports/EKG's, longterm records)? Report findings @ -No old charts were reviewed Differential Diagnosis (chest pain, altered mental status, abdominal pain women, abdominal pain men, vaginal bleeding, musculoskeletal, weakness, fever, dyspnea, syncope, headache, dizziness, GI bleed, back pain, seizure, CVA, palpatations, mental health)? @ -Differential Altered Mental Status: Hypoglycemia, DKA, hypercapnia, ETOH, overdose, CO poisoning, trauma, myxedema coma, HTN encephalopathy, infection, encephalitis, psychosis, intercranial h emorrhage, hepatic encephalopathy, meningitis, CVA, this is not meant to be an all-inclusive list EKG interpreted by me (3pts min.). @ -See above X-rays interpreted by me (1pt min.). @ -None done CT interpreted by me (1pt min.). @ -Computed tomography scan of brain is unremarkable U/S interpreted by me (1pt. min.). @ -None done What testing was considered but not performed or refused? (CT, X-rays, U/S, labs)? Why? @ -None What meds were considered but not given or refused? Why? @ -None Did you discuss the management of the patient with other professionals (professionals i.e. , PA, HAND SUTURE WINDER, lab, RT, psych nurse, professor of social work, welding machine operator electroslag, teacher, radiological defense officer, embedded case manager)? Give summary @ -Case discussed with hospitalist for admission Was smoking cessation discussed for >3mins.? @ -No Was critical care preformed (if so, how long)? @ -No Were there social determinants of health that impacted care today? How? (Homelessness, low income, unemployed, alcoholism, drug addiction, transportation, low edu. Level, literacy, decrease access to med. care, senior living, rehab)? @ -No Was there de-escalation of care discussed even if they declined (Discuss DNR or withdrawal of care, Hospice)? DNR status @ -No What co-morbidities impacted this encounter? (DM, HTN, Smoking, COPD, CAD, Cancer, CVA, ARF, Chemo, Hep., AIDS, mental health diagnosis, sleep apnea, morbid obesity)? @ -None] Was patient admitted / discharged? Hospital course, mention meds given and route, prescriptions, significant lab abnormalities, going to OR and other pertinent info. @ -77-year-old male presents emergency part for worsening hallucinations. Vital signs upon arrival are within acceptable limits. Family does not feel comfortable patient being at home by herself and the discharge. He does not have a good social situation. Her evaluation obtained. CBC metabolic panel is unremarkable. Mild test negative. Computed tomography scan of brain is negative. Patient be admitted with consultation to psychiatry and neurology. Undiagnosed new problem with uncertain prognosis? @ -[No] Drug Therapy requiring intensive monitoring for toxicity (Heparin, Nitro, Insulin, Cardizem)? @ -[No] Were any procedures done? @ -[No] Diagnosis/symptom? Acute, or Chronic, or Acute on Chronic? Uncomplicated (without systemic symptoms) or Complicated (systemic symptoms)? @ -Hallucinations, gravely disabled Side effects of treatment? @ -[No] Exacerbation, Progression, or Severe Exacerbation? @ -[No] Poses a threat to life or bodily function? How? (Chest pain, USA, NE, pneumonia, PE, COPD, DKA, ARF, appy, cholecystitis, CVA, Diverticulitis, Homicidal, Suicidal, threat to staff... and all critical care pts) @ -yes - Lab Data Result diagrams: 06/13/23 17:37 06/13/23 17:37 Lab Results 06/13/23 06/13/23 06/13/23 Range/Units 17:37 17:37 17:37 WBC 8.0 (3.8-10.6) k/uL RBC 5.01 (4.30-5.90) m/uL Hgb 15.6 (13.0-17.5) gm/dL Hct 46.2 (39.0-53.0) % MCV 92.1 (80.0-100.0) fL MCH 31.2 (25.0-35.0) pg MCHC 33.9 (31.0-37.0) g/dL RDW 12.8 (11.5-15.5) % Plt Count 151 (150-450) k/uL MPV 8.1 Neutrophils % 83 % Lymphocytes % 11 % Monocytes % 5 % Eosinophils % 1 % Basophils % 0 % Neutrophils # 6.7 (1.3-7.7) k/uL Lymphocytes # 0.8 L (1.0-4.8) k/uL Monocytes # 0.4 (0-1.0) k/uL Eosinophils # 0.0 (0-0.7) k/uL Basophils # 0.0 (0-0.2) k/uL Sodium 141 (137-145) mmol/L Potassium 4.0 (3.5-5.1) mmol/L Chloride 107 (98-107) mmol/L Carbon Dioxide 24 (22-30) mmol/L Anion Gap 10 mmol/L BUN 52 H (9-20) mg/dL Creatinine 1.71 H (0.66-1.25) mg/dL Est GFR (CKD-EPI)AfAm 43 (>60 ml/min/1.73 sqM) Est GFR (CKD-EPI)NonAf 37 (>60 ml/min/1.73 sqM) Glucose 91 (74-99) mg/dL Calcium 10.3 H (8.4-10.2) mg/dL Magnesium 2.2 (1.6-2.3) mg/dL Total Bilirubin 0.7 (0.2-1.3) mg/dL AST 51 (17-59) U/L ALT 29 (4-49) U/L Alkaline Phosphatase 94 (38-126) U/L Total Protein 7.0 (6.3-8.2) g/dL Albumin 4.4 (3.5-5.0) g/dL Influenza Type A (PCR) Not Detected (Not Detectd) Influenza Type B (PCR) Not Detected (Not Detectd) RSV (PCR) Not Detected (Not Detectd) SARS-CoV-2 (PCR) Not Detected (Not Detectd) Disposition Clinical Impression: AMS (altered mental status) Disposition: ADMITTED IP TO THIS [facility] Condition: Fair Referrals: Malcom Dykes MD [Primary Care Provider] - 1-2 days Decision Time: 19:19
--- NOTE | 2023-06-13 17:45 | CT ---
EXAMINATION TYPE: CT brain wo con CT DLP: 1191.4 mGycm, Automated exposure control for dose reduction was used. DATE OF EXAM: 06/13/2023 5:29 PM COMPARISON: 04/06/2022.. CLINICAL INDICATION:Male, 77 years old with history of ams, AMS, weakness TECHNIQUE: Brain: Axial CT images of the brain were obtained with coronal and sagittal reformats created and rev iewed. Contrast used: None. Oral contrast used: None. FINDINGS: Brain: Extra-axial spaces: No abnormal extra-axial fluid collections. Ventricular system: Dilatation in proportion to cerebral atrophy. Cerebral parenchyma: Cerebral atrophy. No acute intraparenchymal hemorrhage or mass effect. The suarez -white junction is well differentiated. Cerebellum: Unremarkable. Mass effect: No evidence of midline shift. Intracranial vasculature: unremarkable Soft tissues: Normal. Calvarium/osseous structures: No depressed skull fracture. Paranasal sinuses and mastoid air cells: Mild scattered paranasal sinus disease. Visualized orbits: Bilateral aphakia IMPRESSION: 1. No acute intracranial process. 2. Nonspecific white matter changes, likely secondary to chronic small vessel ischemic disease.
[2023-06-13 18:14] LABS: Basophils % (A) 0 %; Eosinophils % (A) 1 %; HCT 46.2 % (39.0-53.0); HGB 15.6 gm/dL (13.0-17.5); Lymphocytes # (A) 0.8 k/uL (1.0-4.8); Lymphocytes % (A) 11 %; MCH 31.2 pg (25.0-35.0); MCHC 33.9 g/dL (31.0-37.0); MCV 92.1 fL (80.0-100.0); Mean Platelet Volume 8.1; Monocytes # (A) 0.4 k/uL (0-1.0); Monocytes % (A) 5 %; Neutrophils # (A) 6.7 k/uL (1.3-7.7); Neutrophils % (A) 83 %; Platelet Count 151 k/uL (150-450); RBC 5.01 m/uL (4.30-5.90); RDW 12.8 % (11.5-15.5)
[2023-06-13 18:28] LABS: ALT 29 U/L (4-49); AST 51 U/L (17-59); African American GFR (CKD) 43 (>60 ml/min/1.73 sqM); Albumin 4.4 g/dL (3.5-5.0); Alkaline Phosphatase 94 U/L (38-126); Anion Gap 10 mmol/L; Blood Urea Nitrogen 52 mg/dL (9-20); Calcium 10.3 mg/dL (8.4-10.2); Carbon Dioxide 24 mmol/L (22-30); Chloride 107 mmol/L (98-107); Glucose 91 mg/dL (74-99); Magnesium 2.2 mg/dL (1.6-2.3); Non-African American GFR(CKD) 37 (>60 ml/min/1.73 sqM); Sodium 141 mmol/L (137-145); Total Bilirubin 0.7 mg/dL (0.2-1.3)
[2023-06-13] MEDS ORDERED: NALOXONE 0.4 MG/ML 1 ML VIAL IV PRN (19:14)
[2023-06-13] MEDS: CARBIDOPA-LEVODOPA 25-100 MG 1 EACH TAB PO SCH (22:04)
[2023-06-14] MEDS ORDERED: ACETAMINOPHEN TAB 325 MG TAB PO PRN (06:53)
[2023-06-14] MEDS ORDERED: ONDANSETRON 4 MG/2 ML VIAL IVP PRN (06:53)
[2023-06-14] MEDS ORDERED: SODIUM CHLORIDE 0.9% 1,000 ML IV SCH (07:00)
[2023-06-14] MEDS: CARBIDOPA-LEVODOPA 25-100 MG 1 EACH TAB PO SCH ×4 (08:01→21:52)
[2023-06-14] MEDS: FAMOTIDINE 20 MG TAB PO SCH (08:01)
[2023-06-14] MEDS: HEPARIN SODIUM,PORCINE 5,000 UNIT/ML 1 ML VIAL SQ SCH ×2 (08:01→21:52)
[2023-06-14] MEDS: METOPROLOL TARTRATE 25 MG TAB PO SCH ×2 (08:01→21:52)
[2023-06-14] MEDS: DORZOLAMIDE-TIMOLOL 2.23%/0.68 10ML BTL LEFT EYE SCH (08:16)
[2023-06-14 08:23] LABS: African American GFR (CKD) 48 (>60 ml/min/1.73 sqM); Anion Gap 5 mmol/L; Blood Urea Nitrogen 40 mg/dL (9-20); Calcium 9.8 mg/dL (8.4-10.2); Carbon Dioxide 29 mmol/L (22-30); Chloride 106 mmol/L (98-107); Glucose 81 mg/dL (74-99); Non-African American GFR(CKD) 42 (>60 ml/min/1.73 sqM); Potassium 3.7 mmol/L (3.5-5.1); Sodium 140 mmol/L (137-145)
[2023-06-14] MEDS ORDERED: LOSARTAN 50 MG TAB PO SCH (09:00)
[2023-06-14] MEDS ORDERED: LOSARTAN-HCTZ 50-12.5 MG 1 EACH TAB PO SCH (09:00)
[2023-06-14 10:37] LABS: Appearance,Urine Clear (Clear); Bilirubin,Urine Negative (Negative); Blood,Urine Negative (Negative); Color,Urine Light Yellow; Glucose,Urine (UA) Negative (Negative); Ketones,Urine 1+ (Negative); Leukocyte Esterase,Urine Negative (Negative); Nitrite,Urine Negative (Negative); PH, Urine 5.5 (5.0-8.0); Protein,Urine Negative (Negative); Urobilinogen,Urine <2.0 mg/dL (<2.0)
[2023-06-14] MEDS: SODIUM CHLORIDE 0.9% 1,000 ML IV SCH (13:15)
--- NOTE | 2023-06-14 14:59 | P.HPIM ---
History of Present Illness H&P Date: 06/14/23 This is a 77-year-old male has medical history of Parkinson's and hypertension. former smoker. Patient comes into the emergency room due to hallucinations and altered mentation that has been ongoing for the last several weeks. He has been in to see his primary provider and referred to a neurologist. Patient lives at home by himself he is having visual and auditory hallucinations of seeing people . Family is concerned for his safety and he is brought in for evaluation. Most of the history is taken from the grand daughter at the bedside states he was driving his car yesterday, police officers were involved. Family cannot provide care for him or 18/12 supervision. Patient is alert x 2-3 able to state his full name, birthday, and the location. He states he came to the hospital due to bad weather. He reports to seeing people in his house and states when he reaches out his arms and "goes right through them". He is on eye drops he states, his left eye is reddened with purulent discharge in the corner. He is disheveled. He had a brain CT done that was negative for any acute changes there is nonspecific white matter changes likely secondary to chronic small vessel ischemic disease. EKG reveals normal sinus rhythm heart rate of [address] or T-wave changes. His blood count is unremarkable he does have a mild kidney injury with BUN of 52, creatinine of 1.71 and calcium of 10.3. Sodium is normal. His viral panel was negative for influenza, RSV and Covid. 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 He is admitted with consult to social work. He will also be evaluated by neurology and psychiatry. REVIEW OF SYSTEMS: CONSTITUTIONAL: No fever, no malaise, no fatigue. HEENT: No recent visual problems or hearing problems. Denied any sore throat. CARDIOVASCULAR: No chest pain, orthopnea, PND, no palpitations, no syncope. PULMONARY: No shortness of breath, no cough, no hemoptysis. GASTROINTESTINAL: No diarrhea, no nausea, no vomiting, no abdominal pain. NEUROLOGICAL: No headaches, no weakness, no numbness. Reports hallucinations. HEMATOLOGICAL: Denies any bleeding or petechiae. GENITOURINARY: Denies any burning micturition, frequency, or urgency. MUSCULOSKELETAL/RHEUMATOLOGICAL: Denies any joint pain, swelling, or any muscle pain. ENDOCRINE: Denies any polyuria or polydipsia. The rest of the 14-point review of systems is negative. PHYSICAL EXAMINATION: GENERAL: The patient is alert and oriented x3, not in any acute distress. Well developed, well nourished. HEENT: Pupils are round and equally reacting to light. EOMI. No scleral icterus. No conjunctival pallor. Normocephalic, atraumatic. No pharyngeal erythema. No thyromegaly. left eye is reddened upper eye lid swollen with some purulent discharge in the corner. CARDIOVASCULAR: S1 and S2 present. No murmurs, rubs, or gallops. PULMONARY: Chest is clear to auscultation, no wheezing or crackles. ABDOMEN: Soft, nontender, nondistended, normoactive bowel sounds. No palpable organomegaly. MUSCULOSKELETAL: No joint swelling or deformity. EXTREMITIES: No cyanosis, clubbing, or pedal edema. left lower extremity edema. NEUROLOGICAL: Gross neurological examination did not reveal any focal deficits. Weakness and confusion. SKIN: No rashes. Bottom is reddended but blanchable, some stool noted. His groin is excoriated. Assessment and Plan -Altered mental status with auditory and visual hallucinations rule out underlying psychiatric diagnosis vs. metabolic encephalopathy from the renal dysfunction. This could also be advancing parkisons related dementia. Neurology and psychiatry are consulted. -Acute kidney injury prerenal likely due to poor oral intake patient will by hydrated with normal saline at 75 mls/hr and repeat labs tomorrow. R/O urinary retention -Left lower extremity cellulitis started on IV cefazolin will check venous doppler R/O DVT as left leg is swollen greater than right -Hx of hypertension patient has been continued on metoprolol recommending to hold losartan at this time. -Hx of Parkinson's continued on Sinemet also on amantadine -Conjunctivitis bacterial on the left eye. Patient will be given oflaxacin gtts for the next 7 days GI prophylaxis DVT prophylaxis: Subcu heparin Full Code PT/OT and social work have been consulted. The impression and plan of care has been dictated by Hien Knight, Nurse Practitioner as directed. Dr. Laura MD I have performed a history and physical examination and medical decision making of this patient, discussed the same with the dictator, and agree with the dictators assessment and plan as written, documented as a scribe. Based on total visit time, I have performed more than 50% of this visit. Past Medical History Past Medical History: Hypertension Additional Past Medical History / Comment(s): Parkinson's Past Surgical History: Orthopedic Surgery Past Psychological History: No Psychological Hx Reported Smoking Status: Former smoker Past Alcohol Use History: None Reported Past Drug Use History: None Reported Medications and Allergies Home Medications Medication Instructions Recorded Confirmed Type Carbidopa/Levodopa 1 tab PO QID 12/19/21 06/13/23 History [Carbidopa-Levodopa 25-100 Tab] Metoprolol Tartrate [Lopressor] 25 mg PO BID 12/19/21 06/13/23 History Olmesartan/Hydrochlorothiazide 1 tab PO DAILY 12/19/21 06/13/23 History [Olmesartan-Hctz 40-12.5 mg Tab] amantadine HCL [Amantadine] 100 mg PO TID 12/19/21 06/13/23 History Dorzolamide-Timol 2.23%/0.68% 1 drop LEFT EYE BID 06/13/23 06/13/23 History [Cosopt] Latanoprost [Latanoprost 0.005%] 1 drop BOTH EYES HS 06/13/23 06/13/23 History Allergies Allergy/AdvReac Type Severity Reaction Status Date / Time No Known Allergies Allergy Verified 06/13/23 18:05 Physical Exam Vitals: Vital Signs Temp Pulse Pulse Resp BP BP Pulse Ox 06/14/23 07:59 81 16 100/75 98 06/14/23 06:22 85 16 141/88 98 06/14/23 02:12 69 16 128/81 98 06/14/23 00:00 90 16 122/82 97 06/13/23 20:00 67 16 156/93 98 06/13/23 18:00 75 18 142/97 97 06/13/23 15:58 97.2 F L 110 H 18 137/107 97 Intake and Output 06/13/23 06/14/23 06/14/23 22:59 06:59 14:59 Intake Total 118 Balance 118 Intake: Oral 118 Other: Weight 76.657 kg Results CBC & Chem 7: 06/13/23 17:37 06/14/23 07:20 Labs: Abnormal Lab Results - Last 24 Hours (Table) 06/13/23 06/13/2306/14/24 Range/Units 17:37 17:37 07:20 Lymphocytes # 0.8 L (1.0-4.8) k/uL BUN 52 H 40 H (9-20) mg/dL Creatinine 1.71 H 1.56 H (0.66-1.25) mg/dL Calcium 10.3 H (8.4-10.2) mg/dL Assessment and Plan Time with Patient: Less than 30
--- NOTE | 2023-06-14 15:45 | P.CNNES ---
History of Present Illness Consult date: 06/14/23 Requesting physician: Erick Flood Reason for Consult: ams History of Present Illness: This is a 77-year-old gentleman who presented emergency department because of hallucinations and altered mental status. He is unable to provide history for me. According to patient he lives himself and he has multiple cats and he states that people want to hurt him. Per the primary team's note is seems the patient has been having hallucination with confusion the last several weeks. Seems that he's been having auditory and visual hallucination of seeing people. That is seems the family was concerned for safety and then brought for evaluation. Seems that he was driving his car yesterday and the police officers were involved. He does have underlying Parkinson's disease and is seems that he follows up with a neurologist. He is on carbidopa levodopa and according to patient he has been on it for a while while and has not had his medication change recently. Seems the patient is on Sinemet 95814 tablet 4 times a day, amantadine 100 mg 3 times a day Some of the workup during his hospital visit consisted of: wbc 8.0K Sodium, magnesium, AST ALT are within normal limits Ammonia is less than 9 Creatinine is 1.71 and today is 1.56. Urine analysis is negative. SARS, RSV and Influenza PCR are not detected. CT of the head is reported as no acute intracranial processes. Nonspecific white matter changes, likely secondary due to chronic small vessel ischemic disease. I personally reviewed the CT of the head and I agree with the report. Review of Systems Review of system is limited but the positive and negative as per HPI. Past Medical History Past Medical History: Hypertension Additional Past Medical History / Comment(s): Parkinson's Past Surgical History: Orthopedic Surgery Past Psychological History: No Psychological Hx Reported Smoking Status: Former smoker Past Alcohol Use History: None Reported Past Drug Use History: None Reported Medications and Allergies Home Medications Medication Instructions Recorded Confirmed Type Carbidopa/Levodopa 1 tab PO QID 12/19/21 06/13/23 History [Carbidopa-Levodopa 25-100 Tab] Metoprolol Tartrate [Lopressor] 25 mg PO BID 12/19/21 06/13/23 History Olmesartan/Hydrochlorothiazide 1 tab PO DAILY 12/19/21 06/13/23 History [Olmesartan-Hctz 40-12.5 mg Tab] amantadine HCL [Amantadine] 100 mg PO TID 12/19/21 06/13/23 History Dorzolamide-Timol 2.23%/0.68% 1 drop LEFT EYE BID 06/13/23 06/13/23 History [Cosopt] Latanoprost [Latanoprost 0.005%] 1 drop BOTH EYES HS 06/13/23 06/13/23 History Allergies Allergy/AdvReac Type Severity Reaction Status Date / Time No Known Allergies Allergy Verified 06/13/23 18:05 Physical Examination - Vital Signs Vital Signs: Vital Signs Temp Pulse Pulse Resp BP BP Pulse Ox 06/14/23 14:11 67 18 116/76 06/14/23 08:00 61 81 18 141/88 98 06/14/23 07:59 81 16 100/75 98 06/14/23 06:22 85 16 141/88 98 06/14/23 02:12 69 16 128/81 98 06/14/23 00:00 90 16 122/82 97 06/13/23 20:00 67 16 156/93 98 06/13/23 18:00 75 18 142/97 97 06/13/23 15:58 97.2 F L 110 H 18 137/107 97 Intake and Output 06/14/23 06/14/23 06/14/23 06:59 14:59 22:59 Intake Total 236 Output Total 50 Balance 186 Intake: Oral 236 Output: Urine 50 General: Lying in bed and does not appear in acute distress. HENT: Supple neck Neuro: Limited because of cooperation. The patient is awake, alert, oriented to self. He correctly stated he was in the hospital. He is able to follow commands and needs orientation to follow commands. Left eye slcera is red and he stated old and seen an technology integration specialist. Pupils are round, and reactive to light. Visual yuan are full to confrontation. No facial weakness. No dysarthria. Motor: Strength is limited in assessment because of cooperation but lifting bilateral uppers>lowers above gravity and seems symmetrical. Has increase tone in uppers with resting tremor of the upper. Sensation: Normal to touch. Reflex: Patient resistant on assessment. Plantars: Mute bilaterally. Results - Laboratory Findings CBC and BMP: 06/13/23 17:37 06/14/23 07:20 Abnormal Lab Findings: Abnormal Labs 06/13/23 06/13/23 06/14/23 17:37 17:37 07:20 Lymphocytes # 0.8 L BUN 52 H 40 H Creatinine 1.71 H 1.56 H Calcium 10.3 H Urine Ketones 06/14/23 10:00 Lymphocytes # BUN Creatinine Calcium Urine Ketones 1+ H Assessment and Plan Assessment: This is a 77-year-old gentleman with history of Parkinson's disease who presented emergency department because of confusion and hallucination over past couple weeks. It seems he follows-up with neurologist as outpatient. Encephalopathy with hallucination (visual and auditory): Possibly due to advanced progressive Parkinson's leading to dementia. CT head is negative for acute/subacute changes. Parkinson's disease Plan: I ordered routine EEG. I ordered TSH, vitamin B12, folate. Patient is resumed on his home medication of Sinemet 25-100 1 tab qid. He is on home Amantadine 100mg 1 tab tid and I changed it to bid with last dose at 3pm since it is a stimulant. Psychiatry is consulted. Will defer the rest of medical management to the primary team. I attempted to contact son via phone but received voice message. Will attempt to call later. Thank you for the consultation. Time with Patient: Greater than 30
[2023-06-14] MEDS: OFLOXACIN 0.3% OPHTH DROPS 5 ML BOTTLE LEFT EYE SCH ×2 (16:09→20:11)
--- NOTE | 2023-06-14 16:17 | P.PN ---
Progress Note - Text Progress Note Date: 06/14/23 An attempt was made to assist this patient today patient however was taken to special procedures at this time and is available for assessment Markchip Vieira MD
--- NOTE | 2023-06-14 16:23 | US ---
EXAMINATION TYPE: US venous doppler duplex LE LT DATE OF EXAM: 06/14/2023 4:02 PM COMPARISON: NONE CLINICAL INDICATION: Male, 77 years old with history of swelling; Leg wounds. Poor historian. SIDE PERFORMED: Left TECHNIQUE: The lower extremity deep venous system is examined utilizing real time linear array sonog martin with graded compression, doppler sonography and color-flow sonography. VESSELS IMAGED: Common Femoral Vein Deep Femoral Vein Greater Saphenous Vein * Femoral Vein Popliteal Vein Small Saphenous Vein * Proximal Calf Veins (* superficial vessels) Left Leg: Negative for DVT Grayscale, color doppler, spectral doppler imaging performed of the deep veins of the left lower extr emity. There is normal flow, compressibility, vascular waveforms. IMPRESSION: No evidence of acute DVT in the left lower extremity.
--- NOTE | 2023-06-14 19:20 | EEG ---
ELECTROENCEPHALOGRAM REPORT CLINICAL HISTORY: This is a 77-year-old gentleman with history of Parkinson's who has had confusion and hallucination. A video EEG is obtained to evaluate for seizure epileptiform activity. RELEVANT MEDICATIONS: Amantadine and carbidopa/levodopa. EEG TYPE: A routine 21-channel EEG with video using the 10/20 electrode placement system. DESCRIPTION: Wakefulness and drowsiness are obtained. During the awake state, the posterior- dominant rhythm consists of low voltage of 8.5 to 9 hertz activity. There is no physiological stage 2 sleep architecture. There is no focal slowing. There is mild diffuse myogenic artifact. Interictal and ictal is none. ACTIVATION PROCEDURE: Photic stimulation did not evoke a posterior driving response. There is no abnormality during the photic stimulation. Hyperventilation is not performed. CLINICAL INTERPRETATION: This is a normal routine EEG. There is no focal slowing, epileptiform discharge, or seizure on the EEG. A normal routine EEG. There is no underlying epilepsy. Clinical correlation is recommended. ERIN / SHIRA: [id number] / FARHANA
[2023-06-14] MEDS ORDERED: QUEtiapine 25 MG TAB PO SCH (21:00)
[2023-06-15] MEDS: SODIUM CHLORIDE 0.9% 1,000 ML IV SCH ×2 (00:06→15:27)
[2023-06-15] MEDS: OFLOXACIN 0.3% OPHTH DROPS 5 ML BOTTLE LEFT EYE SCH ×6 (00:07→20:55)
[2023-06-15] MEDS: DORZOLAMIDE-TIMOLOL 2.23%/0.68 10ML BTL LEFT EYE SCH ×3 (07:33→21:43)
[2023-06-15] MEDS: LATANOPROST 0.005% OPHTH DROPS 2.5 ML BTL BOTH EYES SCH ×2 (07:34→21:48)
[2023-06-15 10:24] LABS: African American GFR (CKD) 46 (>60 ml/min/1.73 sqM); Anion Gap 4 mmol/L; Blood Urea Nitrogen 37 mg/dL (9-20); Calcium 9.2 mg/dL (8.4-10.2); Carbon Dioxide 23 mmol/L (22-30); Chloride 110 mmol/L (98-107); Glucose 102 mg/dL (74-99); Non-African American GFR(CKD) 40 (>60 ml/min/1.73 sqM); Potassium 4.3 mmol/L (3.5-5.1); Sodium 137 mmol/L (137-145)
[2023-06-15] MEDS: FAMOTIDINE 20 MG TAB PO SCH (11:30)
[2023-06-15] MEDS: CARBIDOPA-LEVODOPA 25-100 MG 1 EACH TAB PO SCH ×4 (11:31→21:43)
[2023-06-15] MEDS: HEPARIN SODIUM,PORCINE 5,000 UNIT/ML 1 ML VIAL SQ SCH ×2 (11:32→21:43)
[2023-06-15] MEDS: METOPROLOL TARTRATE 25 MG TAB PO SCH ×2 (11:32→21:43)
--- NOTE | 2023-06-15 13:21 | P.PN ---
Subjective Progress Note Date: 06/15/23 I am following-up with patient and he feels he is doing much better. Per nurse he is less confused today. Patient denies any further hallucination since being in the hospital. Patient states he had Parkison's disease for years and in past followed-up with neurologist at [place] in which he was on higher dose of Sinemet which made him more rigid which dose had to be decreased at least a year ago and felt better. He now follow-up with Leo PATIÑO with [facility]. Objective - Vital Signs Vital signs: Vital Signs Temp 97.8 F 06/15/23 07:00 Pulse 53 L 06/15/23 07:00 Resp 17 06/15/23 07:00 BP 162/89 06/15/23 07:00 Pulse Ox 99 06/15/23 07:00 FiO2 Intake & Output 06/14/23 06/15/23 06/15/23 18:59 06:59 18:59 Intake Total 458 950 Output Total 550 1000 Balance -92 950 -1000 Weight 76.657 kg Intake: Intake, IV Titration 950 Amount Sodium Chloride 0.9% 1, 900 000 ml @ 75 mls/hr IV . [id number] NITHIN Rx#:[id number] ceFAZolin 2 gm In Sodium 50 Chloride 0.9% 50 ml @ 100 mls/hr IVPB Q8HR NITHIN Rx# :[id number] Oral 458 Output: Urine 550 1000 - Exam General: Lying in bed and is not in acute distress. Integumentary: Has black discoloration of distal toes and has bruises of the lower extremities below the knee. Neuro: The patient is awake, alert, oriented to self, place and time. Is following simple commands. No aphasia or neglect. Pupils are round, equally and reactive to light. Has slight extropia of left eye and slcera is slightly red and he states old and see [employer] Program Director. Visual yuan are full. EOM intact and no nystamgus. No facial weakness. No dysarthria. Motor: Strength is lifting all extremities above gravity (uppers > lowers). Has resting tremor of the left upper. Sensation: Normal to touch throughout. Some of the workup during his hospital visit consisted of: wbc 8.0K Sodium, magnesium, AST ALT are within normal limits Ammonia is less than 9 Creatinine is 1.71 and today is 1.56. Urine analysis is negative. SARS, RSV and Influenza PCR are not detected. Vitamin B12: 605 Folate: 7.70 TSH: 1.270 CT of the head is reported as no acute intracranial processes. Nonspecific white matter changes, likely secondary due to chronic small vessel ischemic disease. I personally reviewed the CT of the head and I agree with the report. Routine EEG is normal. Venous duplex left lower is negative for DVT. - Labs CBC & Chem 7: 06/13/23 17:37 06/15/23 06:30 Labs: Abnormal Lab Results - Last 24 Hours (Table) 06/15/23 Range/Units 06:30 Chloride 110 H (98-107) mmol/L BUN 37 H (9-20) mg/dL Creatinine 1.62 H (0.66-1.25) mg/dL Glucose 102 H (74-99) mg/dL Assessment and Plan Assessment: This is a 77-year-old gentleman with history of Parkinson's disease who presented emergency department because of confusion and hallucination over past couple weeks. It seems he follows-up with neurologist as outpatient. Encephalopathy with hallucination (visual and auditory): Possibly due to advanced progressive Parkinson's leading to dementia. CT head is negative for acute/subacute changes. EEG is normal. Today patient is drastically better. Low normal folate 7.7 Parkinson's disease Black discoloration of toes rule out PVD Plan: I will increase home Sinemet 25-100 from 1 tab qid to 1.5 tab qid since continues to have uncontrolled tremors. In the past he was on high dose and could not tolerate very high dose. Will assess if he has improvement in s ymptoms and no side-effect from increase. He is on home Amantadine 100mg 1 tab tid and I changed it to bid with last dose at 3pm since it is a stimulant. For low normal folic acid, I started him on folic acid 1mg daily. Psychiatry is consulted. For black discoloration of toes, consider vascular surgery consult to rule out PVD. Will defer the rest of medical management to the primary team. The plan is discussed with patient and his nurse. Dr. Soto will resume neurology service tomorrow A.M. Time with Patient: Less than 30
--- NOTE | 2023-06-15 13:43 | P.PN ---
Subjective Progress Note Date: 06/15/23 This is a 77-year-old male has medical history of Parkinson's and hypertension. former smoker. Patient comes into the emergency room due to hallucinations and altered mentation that has been ongoing for the last several weeks. He has been in to see his primary provider and referred to a neurologist. Patient lives at home by himself he is having visual and auditory hallucinations of seeing people. Family is concerned for his safety and he is brought in for evaluation. Most of the history is taken from the grand daughter at the bedside states he was driving his car yesterday, police officers were involved. Family cannot provide care for him or 18/12 supervision. Patient is alert x 2-3 able to state his full name, birthday, and the location. He states he came to the hospital due to bad weather. He reports to seeing people in his house and states when he reaches out his arms and "goes right through them". He is on eye drops he states, his left eye is reddened with purulent discharge in the corner. He is disheveled. He had a brain CT done that was negative for any acute changes there is nonspecific white matter changes likely secondary to chronic small vessel ischemic disease. EKG reveals normal sinus rhythm heart rate of [address] or T- wave changes. His blood count is unremarkable he does have a mild kidney injury with BUN of 52, creatinine of 1.71 and calcium of 10.3. Sodium is normal. His viral panel was negative for influenza, RSV and Covid. 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 He is admitted with consult to social work. He will also be evaluated by neurology and psychiatry. 06/15/2023 Patient is seen today in the medical floor he is more confused than yesterday. He thinks that we are at [facility]. His lower extremity scabbing he states is from when he fell there is no drainage and no redness today patient does not have an IV and okay to leave out and monitor off antibiotics at this time. He needs placement and social work is involved. BUN 37 and creatinine 1.62. Ammonia level less than 9, vitamin B12 605, folate 7.70 and TSH 1.270. EEG was negative for seizure like activity. REVIEW OF SYSTEMS: CONSTITUTIONAL: No fever, no malaise, no fatigue. HEENT: No recent visual problems or hearing problems. Denied any sore throat. CARDIOVASCULAR: No chest pain, orthopnea, PND, no palpitations, no syncope. PULMONARY: No shortness of breath, no cough, no hemoptysis. GASTROINTESTINAL: No diarrhea, no nausea, no vomiting, no abdominal pain. NEUROLOGICAL: No headaches, no weakness, no numbness. Reports hallucinations. PHYSICAL EXAMINATION: GENERAL: The patient is alert and oriented x2, not in any acute distress. Well developed, well nourished. HEENT: Pupils are round and equally reacting to light. EOMI. No scleral icterus. No conjunctival pallor. Normocephalic, atraumatic. No pharyngeal erythema. No thyromegaly. left eye is reddened upper eye lid swollen with some purulent discharge in the corner. CARDIOVASCULAR: S1 and S2 present. No murmurs, rubs, or gallops. PULMONARY: Chest is clear to auscultation, no wheezing or crackles. ABDOMEN: Soft, nontender, nondistended, normoactive bowel sounds. No palpable organomegaly. MUSCULOSKELETAL: No joint swelling or deformity. EXTREMITIES: No cyanosis, clubbing, or pedal edema. left lower extremity edema. NEUROLOGICAL: Gross neurological examination did not reveal any focal deficits. Weakness and confusion. SKIN: No rashes. Bottom is reddended but blanchable, some stool noted. His groin is excoriated. Assessment and Plan -Altered mental status with auditory and visual hallucinations rule out underlying psychiatric diagnosis vs. metabolic encephalopathy from the renal dysfunction. This could also be advancing parkisons related dementia. Neurology and psychiatry are consulted. -Acute kidney injury prerenal likely due to poor oral intake patient will by hydrated with normal saline at 75 mls/hr and repeat labs tomorrow. R/O urinary retention -Left lower extremity cellulitis started on IV cefazolin will check venous doppler R/O DVT as left leg is swollen greater than right -Hx of hypertension patient has been continued on metoprolol recommending to hold losartan at this time. -Hx of Parkinson's continued on Sinemet also on amantadine -Conjunctivitis bacterial on the left eye. Patient will be given oflaxacin gtts for the next 7 days GI prophylaxis DVT prophylaxis: Subcu heparin Full Code PT/OT and social work have been consulted. Patient will need subacute rehab. The impression and plan of care has been dictated by Hien Knight, Nurse Practitioner as directed. Dr. Laura MD I have performed a history and physical examination and medical decision making of this patient, discussed the same with the dictator, and agree with the dictators assessment and plan as written, documented as a scribe. Based on total visit time, I have performed more than 50% of this visit. Objective - Vital Signs Vital signs: Vital Signs Temp 97.8 F 06/15/23 07:00 Pulse 53 L 06/15/23 07:00 Resp 17 06/15/23 07:00 BP 162/89 06/15/23 07:00 Pulse Ox 99 06/15/23 07:00 FiO2 Intake & Output 06/14/23 06/15/23 06/15/23 18:59 06:59 18:59 Intake Total 458 950 Output Total 550 1000 Balance -92 950 -1000 Weight 76.657 kg Intake: Intake, IV Titration 950 Amount Sodium Chloride 0.9% 1, 900 000 ml @ 75 mls/hr IV . [id number] NITHIN Rx#:[id number] ceFAZolin 2 gm In Sodium 50 Chloride 0.9% 50 ml @ 100 mls/hr IVPB Q8HR NITHIN Rx# :[id number] Oral 458 Output: Urine 550 1000 - Labs CBC & Chem 7: 06/13/23 17:37 06/15/23 06:30 Labs: Abnormal Lab Results - Last 24 Hours (Table) 06/15/23 Range/Units 06:30 Chloride 110 H (98-107) mmol/L BUN 37 H (9-20) mg/dL Creatinine 1.62 H (0.66-1.25) mg/dL Glucose 102 H (74-99) mg/dL Assessment and Plan Time with Patient: Less than 30
[2023-06-15] MEDS: FOLIC ACID 1 MG TAB PO SCH (15:20)
[2023-06-16] MEDS: OFLOXACIN 0.3% OPHTH DROPS 5 ML BOTTLE LEFT EYE SCH ×7 (01:22→23:59)
[2023-06-16] MEDS: CARBIDOPA-LEVODOPA 25-100 MG 1 EACH TAB PO SCH ×4 (08:27→21:58)
[2023-06-16] MEDS: HEPARIN SODIUM,PORCINE 5,000 UNIT/ML 1 ML VIAL SQ SCH ×2 (08:27→21:58)
[2023-06-16] MEDS: FOLIC ACID 1 MG TAB PO SCH (08:27)
[2023-06-16] MEDS: FAMOTIDINE 20 MG TAB PO SCH (08:27)
[2023-06-16] MEDS: METOPROLOL TARTRATE 25 MG TAB PO SCH ×2 (08:27→21:58)
[2023-06-16] MEDS: DORZOLAMIDE-TIMOLOL 2.23%/0.68 10ML BTL LEFT EYE SCH ×2 (08:30→21:57)
[2023-06-16 12:39] LABS: Calcium 9.3 mg/dL (8.7-10.3); Carbon Dioxide 25.9 mmol/L (21.6-31.8); Chloride 105 mmol/L (96-109); Glucose 96 mg/dL (70-110); Potassium 4.1 mmol/L (3.5-5.5); Sodium 139 mmol/L (135-145)
--- NOTE | 2023-06-16 14:41 | P.PN ---
Subjective Progress Note Date: 06/16/23 The pt is a 77 y/o male who is seen in neurologic follow up on 2023, in collaboration with Peewee Diaz, via teleneurology. The chart is reviewed. The pt reportedly has a long history of Parkinson's disease. He came into the hospital because of hallucinations and mental status changes. Per neurology consultation, the pt was having uncontrolled tremors, thus, his dosing of Sinemet was increased. Today, the pt reports feeling better with the higher dose. Objective - Vital Signs Vital signs: Vital Signs Temp 97.7 F 06/16/23 13:44 Pulse 57 L 06/16/23 13:44 Resp 16 06/16/23 13:44 BP 166/86 06/16/23 13:44 Pulse Ox 99 06/16/23 13:44 FiO2 Intake & Output 06/15/23 06/16/23 06/16/23 18:59 06:59 18:59 Intake Total 440 Output Total 1450 950 Balance -1450 -950 440 Intake: Oral 440 Output: Urine 1450 950 Other: Voiding Method External Catheter - Exam General: The pt is reclining in the bed. He is in no acute distress. HEENT: Head is atraumatic, normocephalic. There is a tremor of the tongue. Neurologic exam Mental status: Awake, alert and oriented. No mask like face. The pt is animated. No hypophonia Cranial nerves: Grossly intact Motor: 5/5. No cogwheel rigidity. Coordination: Resting tremor left upper. Mild bradykinesia with rapid alternating movements - Labs CBC & Chem 7: 06/13/23 17:37 06/16/23 03:59 Labs: Abnormal Lab Results - Last 24 Hours (Table) 06/16/23 Range/Units 03:59 BUN 32.0 H (9.0-27.0) mg/dL Creatinine 1.6 H (0.6-1.5) mg/dL Est GFR (CKD-EPI) 44 L (>=60) Assessment and Plan Assessment: Encephalopathy with hallucination (visual and auditory): Possibly due to advanced progressive Parkinson's leading to dementia. CT head is negative for acute/subacute changes. EEG is normal. Today patient is better with increase in Sinemet dosing Low normal folate 7.7 Parkinson's disease Black discoloration of toes rule out PVD Plan: 1. Continue current Sinemet dosing 2. Consult care management for safe discharge plan 3. Follow with out patient neurologist Time with Patient: Less than 30
[2023-06-16] MEDS: LATANOPROST 0.005% OPHTH DROPS 2.5 ML BTL BOTH EYES SCH (21:58)
[2023-06-16] MEDS: QUEtiapine 25 MG TAB PO SCH (21:58)
--- NOTE | 2023-06-16 22:32 | P.PN ---
Progress Note - Text Progress Note Date: 06/16/23 This is a 77-year-old male has medical history of Parkinson's and hypertension. former smoker. Patient comes into the emergency room due to hallucinations and altered mentation that has been ongoing for the last several weeks. He has been in to see his primary provider and referred to a neurologist. Patient lives at home by himself he is having visual and auditory hallucinations of seeing people. Family is concerned for his safety and he is brought in for evaluation. Most of the history is taken from the grand daughter at the bedside states he was driving his car yesterday, police officers were involved. Family cannot provide care for him or 18/12 supervision. Patient is alert x 2-3 able to state his full name, birthday, and the location. He states he came to the hospital due to bad weather. He reports to seeing people in his house and states when he reaches out his arms and "goes right through them". He is on eye drops he states, his left eye is reddened with purulent discharge in the corner. He is disheveled. He had a brain CT done that was negative for any acute changes there is nonspecific white matter changes likely secondary to chronic small vessel ischemic disease. EKG reveals normal sinus rhythm heart rate of [address] or T- wave changes. His blood count is unremarkable he does have a mild kidney injury with BUN of 52, creatinine of 1.71 and calcium of 10.3. Sodium is normal. His viral panel was negative for influenza, RSV and Covid. 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 He is admitted with consult to social work. He will also be evaluated by neurology and psychiatry. 06/15/2023 Patient is seen today in the medical floor he is more confused than yesterday. He thinks that we are at [facility]. His lower extremity scabbing he states is from when he fell there is no drainage and no redness today patient does not have an IV and okay to leave out and monitor off antibiotics at this time. He needs placement and social work is involved. BUN 37 and creatinine 1.62. Ammonia level less than 9, vitamin B12 605, folate 7.70 and TSH 1.270. EEG was negative for seizure like activity. 06/16/2023: Laying in bed. Appetite is fair. He knows that it is in the hospital, the uterus 2023 and its winter season. Overall feeling better. Active Medications Acetaminophen (Acetaminophen Tab 325 Mg Tab) 650 mg PO Q6HR PRN PRN Reason: Fever and/ or Pain Amantadine HCl (Amantadine Hcl 100 Mg Cap) 100 mg PO BID@08,15 [facility] Last Admin: 06/16/23 14:08 Dose: 100 mg Carbidopa/Levodopa (Carbidopa-Levodopa 25-100 Mg 1 Each Tab) 1.5 each PO QID [facility] Last Admin: 06/16/23 21:58 Dose: 1.5 each Dorzolamide/Timolol (Dorzolamide-Timolol 2.23%/0.68 10ml Btl) 1 drops LEFT EYE BID [facility] Last Admin: 06/16/23 21:57 Dose: 1 drops Famotidine (Famotidine 20 Mg Tab) 20 mg PO DAILY [facility] Last Admin: 06/16/23 08:27 Dose: 20 mg Folic Acid (Folic Acid 1 Mg Tab) 1 mg PO DAILY [facility] Last Admin: 06/16/23 08:27 Dose: 1 mg Heparin Sodium (Porcine) (Heparin Sodium,Porcine 5,000 Unit/Ml 1 Ml Vial) 5,000 unit SQ Q12HR [facility] Last Admin: 06/16/23 21:58 Dose: 5,000 unit Latanoprost (Latanoprost 0.005% Ophth Drops 2.5 Ml Btl) 1 drops BOTH EYES [facility] Last Admin: 06/16/23 21:58 Dose: 1 drops Metoprolol Tartrate (Metoprolol Tartrate 25 Mg Tab) 25 mg PO BID [facility] Last Admin: 06/16/23 21:58 Dose: 25 mg Naloxone HCl (Naloxone 0.4 Mg/Ml 1 Ml Vial) 0.2 mg IV Q2M PRN PRN Reason: Opioid Reversal Ofloxacin (Ofloxacin 0.3% Ophth Drops 5 Ml Bottle) 2 drops LEFT EYE Q4HR [facility] Stop: 06/21/23 16:01 Last Admin: 06/16/23 20:53 Dose: 2 drops Ondansetron HCl (Ondansetron 4 Mg/2 Ml Vial) 4 mg IVP Q6HR PRN PRN Reason: Nausea And Vomiting Quetiapine Fumarate (Quetiapine 25 Mg Tab) 25 mg PO HS [facility] Last Admin: 06/16/23 21:58 Dose: 25 mg On examination: VITAL SIGNS: [97.7, 57, 16, 166/86, 90% room air] GENERAL APPEARANCE: Laying in bed, awake, comfortable. HEENT: Normal external appearance of nose and ear. Oral cavity normal EYES: Pupils equal. Conjunctiva normal. NECK: JVD not raised. Mass not palpable. RESPIRATORY: Respiratory effort normal. Lungs clear to auscultation. CARDIOVASCULAR: First and second sounds normal. No edema. ABDOMEN: Soft. Liver and spleen not palpable. No tenderness. No mass palpable. PSYCHIATRY: Patient knows that he in the hospital, cannot tell the name, year 2023, he knows that it is winter season.. INVESTIGATIONS, reviewed in the clinical context: 06/24/2023: Potassium 4.1 BUN 32 creatinine 1.6 EKG: Negative for epileptiform activity. CT brain: Chronic changes Assessment and Plan -Acute metabolic encephalopathy multifactorial: Better Neurology and psychiatry are following. -Moderate cognitive impairment due to underlying Parkinson's -Acute kidney injury prerenal likely due to poor oral intake patient will by hydrated with normal saline at 75 mls/hr and repeat labs tomorrow. R/O urinary retention -Left lower extremity cellulitis started on IV cefazolin will check venous doppler R/O DVT as left leg is swollen greater than right -Essential hypertension patient has been continued on metoprolol recommending to hold losartan at this time. - Parkinson's uncontrolled Increased dose of Sinemet and decreased dose of amantadine . Seen by neurology -Acute Conjunctivitis bacterial on the left eye. Patient will be given oflaxacin gtts for the next 7 days -Acute on chronic medical debility. 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 -Disposition: Pending rehab Full Code
[2023-06-17] MEDS: OFLOXACIN 0.3% OPHTH DROPS 5 ML BOTTLE LEFT EYE SCH ×6 (04:52→23:29)
[2023-06-17] MEDS: HEPARIN SODIUM,PORCINE 5,000 UNIT/ML 1 ML VIAL SQ SCH ×2 (08:26→21:49)
[2023-06-17] MEDS: FOLIC ACID 1 MG TAB PO SCH (08:26)
[2023-06-17] MEDS: METOPROLOL TARTRATE 25 MG TAB PO SCH ×2 (08:26→21:49)
[2023-06-17] MEDS: CARBIDOPA-LEVODOPA 25-100 MG 1 EACH TAB PO SCH ×4 (08:26→21:49)
[2023-06-17] MEDS: FAMOTIDINE 20 MG TAB PO SCH (08:26)
[2023-06-17] MEDS: DORZOLAMIDE-TIMOLOL 2.23%/0.68 10ML BTL LEFT EYE SCH ×2 (08:27→21:50)
[2023-06-17] MEDS: QUEtiapine 25 MG TAB PO SCH (21:49)
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
[2023-06-17] MEDS: LATANOPROST 0.005% OPHTH DROPS 2.5 ML BTL BOTH EYES SCH (22:50)
[2023-06-18] MEDS: OFLOXACIN 0.3% OPHTH DROPS 5 ML BOTTLE LEFT EYE SCH ×4 (04:39→15:34)
[2023-06-18] MEDS: CARBIDOPA-LEVODOPA 25-100 MG 1 EACH TAB PO SCH ×2 (07:26→12:12)
[2023-06-18] MEDS: HEPARIN SODIUM,PORCINE 5,000 UNIT/ML 1 ML VIAL SQ SCH (07:26)
[2023-06-18] MEDS: METOPROLOL TARTRATE 25 MG TAB PO SCH (07:26)
[2023-06-18] MEDS: FAMOTIDINE 20 MG TAB PO SCH (07:27)
[2023-06-18] MEDS: DORZOLAMIDE-TIMOLOL 2.23%/0.68 10ML BTL LEFT EYE SCH (07:27)
[2023-06-18] MEDS: FOLIC ACID 1 MG TAB PO SCH (07:27)
--- NOTE | 2023-06-18 08:48 | US ---
EXAMINATION TYPE: US kidneys/renal and bladder DATE OF EXAM: 06/18/2023 COMPARISON: NONE CLINICAL INDICATION: Male, 78 years old with history of Evaluate for CK D; Evaluate for CKD EXAM MEASUREMENTS: Right Kidney: 10.3 x 5.8 x 5.9 cm Left Kidney: 10.2 x 5.9 x 6.0 cm Right Kidney: Complex lesion seen upper pole: 5.6 x 6.6 x 4.7 cm. *Multiple anechoic areas seen, largest at lower pole: 2.8 x 2.4 x 2.5 cm. Left Kidney: *Complex area seen at mid: 3.7 x 3.2 x 2.4 cm. Two subcentimeter anechoic areas seen lower pole. Bladder: Appears wnl Bilateral Jets seen: Yes IMPRESSION: Complex cystic lesion within the bilateral kidneys. The lesion on the right has more Consider complet e evaluation with cross-sectional imaging millimeters solid component. MRI abdomen with contrast.
[2023-06-18] MEDS ORDERED: QUEtiapine 25 MG TAB PO PRN (15:03)
[2023-06-18 15:08] VITALS: BP 107/67; PULSE 54; RESP 18; TEMP 97.5
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
--- NOTE | 2023-06-18 15:14 | P.CN ---
Psychiatric Consult - . Consult date: 06/18/23 Consult:: 06/18/23 14:36 IDENTIFYING DATA: This patient is a 78-year-old male, currently lives at home alone, he is , he has 3 kids. REASON FOR REFERRAL: Psychiatry was consulted for hallucinations HISTORY OF PRESENT ILLNESS: The patient presented to the hospital originally on 06/13 for hallucinations. Apparently; however several weeks. Patient was altered as well. He has a history of organ systems disease and dementia. Patient apparently was seeing things in the house, he was being treated for lower extremity cellulitis with antibiotics on the medical floors. Neurology is following along. EEG was completed and did not show any significant signs. Patient was seen today for psychiatric consultation. Patient apparently has already been accepted to a senior living and will be going later on today. Patient apparently has been sleeping well, states that he is doing "all right" he was mumbling at times during the interview however was fairly directable, fairly pleasant with brighter. Denies any problems with his mood, states his anxiety is fine. He did not know his correct location however does know today's date, he knows it's his birthday, he knows his correct age. He knows his correct name. States that his appetite is fair. He is sleeping well. He is not reporting any problems with his medications. . At this time patient denies any suicidal or homical ideations, intent or plan. Patient denies any auditory, visual hallucinations and denies any paranoia or delusions. Patients admits to using no recreational drugs PAST PSYCHIATRIC HISTORY: Patient has a a history of Parkinson's disease and de mentia. Is currently on Sinemet, amantadine and also Seroquel, Patient denies any previous psychiatric hospitalizations. Patient denies any psychiatric outpatient follow-up. Patient denies any history of suicide attempts in the past. Past Medical History: Hypertension Additional Past Medical History / Comment(s): Parkinson's Past Surgical History: Orthopedic Surgery Past Psychological History: No Psychological Hx Reported Smoking Status: Former smoker Past Alcohol Use History: None Reported Past Drug Use History: None Reported ALLERGIES: as per EMR. CHEMICAL DEPENDENCY HISTORY: as per HPI. FAMILY PSYCHIATRIC/SUBSTANCE USE HISTORY: denies SOCIAL HISTORY: Patient was born and raised in [facility]. He states that [place] He claims that he is retired from [employer]. States that he has 3 kids. Claims that he is currently . He was living at home alone. As any legal history MENTAL STATUS EXAM: General Appearance: Patient appears to be wearing glasses, mild resting tremor, stated age is alert, pleasant, and cooperative. Patient appears to have fair hygiene and grooming wearing hospital gown with fair eye contact. Behavior: Patient is calmly lying in bed without any agitated behavior. Times cooperate. Speech: Patient's speech is fluent and nonpressured. mumbling at times Mood/Affect: Patient reports their mood is "good", affect is congruent Suicidality/Homicidality: Patient denies having any suicidal or homicidal ideation intent or plan. Perceptions: Patient denies any visual hallucinations and denies any auditory hallucinations Though content/process: There is no evidence of any delusional thought content and thought process is linear and goal-directed. concrete. rambles at times Memory and concentration: AOX3, grossly intact for the purposes of this session. Can spell "WORLD" backwards Judgment and insight: chronically limited. improved IMPRESSIONS: Delirium, multifactorial, resolved Parkinson's disease major neurocognitive disorder PLAN: -At this time patient DOES NOT meet criteria for inpatient psychiatric admission. -Patient DOES NOT have decision making capacity at this time and is unable to reason through and communicate/appreciate the risks, benefits and alternatives to treatment. -Delirium precautions recommended with patient including - avoiding use of narcotics and [employer] sedatives, limit anticholinergic medications when possible, frequent re-orientation, minimize use of restraints, open window shades during the day and close them at night -Would recommend the following medication changes/additions: avoid Bzd disease will likely increase patient's confusion and delirium. Continue with scheduled Seroquel 25 mg daily at bedtime with 25 mg when necessary daily for agitation/psychosis. -Communicated plan to patient's nurse -Psychiatry will sign off at this time -Please contact with any questions. 06/18/23 15:05 06/18/23 15:08
== END 2023-06-18 16:26 | DRG 56 ==
LOC: EC 15:48 → 4SSUR 19:16
PROVIDERS: ADMIT Hospitalist; ATTEND Hospitalist
DX: G20.A1 Parkinson's disease without dyskinesia, without mention of fluctuations (principal); G93.41 Metabolic encephalopathy; L03.116 Cellulitis of left lower limb; N17.9 Acute kidney failure, unspecified; Z60.2 Problems related to living alone; E11.22 Type 2 diabetes mellitus with diabetic chronic kidney disease; N18.30 Chronic kidney disease, stage 3 unspecified; R53.81 Other malaise; E86.0 Dehydration; H10.32 Unspecified acute conjunctivitis, left eye; R41.89 Other symptoms and signs involving cognitive functions and awareness; F02.80 Dementia in other diseases classified elsewhere, unspecified severity, without behavioral disturbance, psychotic disturbance, mood disturbance, and anxiety; I12.9 Hypertensive chronic kidney disease with stage 1 through stage 4 chronic kidney disease, or unspecified chronic kidney disease; Z87.891 Personal history of nicotine dependence; Z79.899 Other long term (current) drug therapy
CPT/HCPCS: 36415; 70450; 76770; 80048; 80053; 81003; 82140; 82607; 82746; 83735; 84443; 85025; 87636; 93005; 95816; 96361; 96365; 96372; 99285

== ENCOUNTER 2023-08-13 18:25 | Emergency (ER) | payer MEDICARE ==
[2023-08-13 18:58] VITALS: TEMP 98
--- NOTE | 2023-08-13 18:59 | ED ---
Fall HPI - General Chief Complaint: Fall Stated Complaint: Fall Time Seen by Provider: 08/13/23 18:33 Source: patient, RN notes reviewed, old records reviewed Mode of arrival: ambulatory Limitations: no limitations - History of Present Illness Initial Comments: This is a 78-year-old male to ER for evaluation of an unwitnessed fall from extended-care facility. Patient is ambulatory here in the ER has no complaints. 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 Fall Witnessed: yes, by bystander, yes, by living facility staff Place Fall Occurred: home, prison/SNF Loss of Consciousness: none Prolonged Down Time?: no Symptoms Prior to Fall: none Location: other (No complaints) Severity scale (1-10): 0 Context: tripped/slipped Associated Symptoms: denies - Related Data Home Medications Medication Instructions Recorded Confirmed Carbidopa/Levodopa 1 tab PO QID 12/19/21 06/13/23 [Carbidopa-Levodopa 25-100 Tab] Metoprolol Tartrate [Lopressor] 25 mg PO BID 12/19/21 06/13/23 amantadine HCL [Amantadine] 100 mg PO TID 12/19/21 06/13/23 Dorzolamide-Timol 2.23%/0.68% 1 drop LEFT EYE BID 06/13/23 06/13/23 [Cosopt] Latanoprost [Latanoprost 0.005%] 1 drop BOTH EYES HS 06/13/23 06/13/23 Previous Rx's Medication Instructions Recorded Acetaminophen Tab [Tylenol] 650 mg PO Q6HR PRN tab 06/18/23 Famotidine [Pepcid] 20 mg PO DAILY tab 06/18/23 Folic Acid 1 mg PO DAILY tab 06/18/23 Ofloxacin 0.3% Ophth Soln [Ocuflox 2 drops LEFT EYE Q4HR 7 Days ml 06/18/23 Ophth Soln] Olmesartan/Hydrochlorothiazide 1 tab PO HS #0 06/18/23 [Olmesartan-Hctz 40-12.5 mg Tab] QUEtiapine [SEROquel] 25 mg PO DAILY PRN 30 Days #30 tab 06/18/23 QUEtiapine [SEROquel] 25 mg PO HS tab 06/18/23 Allergies Allergy/AdvReac Type Severity Reaction Status Date / Time No Known Allergies Allergy Verified 08/13/23 18:30 Review of Systems ROS Statement: Those systems with pertinent positive or pertinent negative responses have been documented in the HPI. ROS Other: All systems not noted in ROS Statement are negative. Past Medical History Past Medical History: Hypertension Additional Past Medical History / Comment(s): Parkinson's History of Any Multi-Drug Resistant Organisms: None Reported Past Surgical History: Orthopedic Surgery Additional Past Surgical History / Comment(s): left knee Past Anesthesia/Blood Transfusion Reactions: No Reported Reaction Past Psychological History: No Psychological Hx Reported Smoking Status: Former smoker Past Alcohol Use History: None Reported Past Drug Use History: None Reported General Exam Limitations: no limitations General appearance: alert, in no apparent distress Head exam: Present: atraumatic, normocephalic, normal inspection Eye exam: Present: normal appearance, PERRL, EOMI. Absent: scleral icterus, conjunctival injection, periorbital swelling ENT exam: Present: normal exam, mucous membranes moist Neck exam: Present: normal inspection. Absent: tenderness, meningismus, lymphadenopathy Respiratory exam: Present: normal lung sounds bilaterally. Absent: respiratory distress, wheezes, rales, rhonchi, stridor Cardiovascular Exam: Present: regular rate, normal rhythm, normal heart sounds. Absent: systolic murmur, diastolic murmur, rubs, gallop, clicks GI/Abdominal exam: Present: soft, normal bowel sounds. Absent: distended, tenderness, guarding, rebound, rigid Extremities exam: Present: normal inspection, full ROM, normal capillary refill. Absent: tenderness, pedal edema, joint swelling, calf tenderness Back exam: Present: normal inspection Neurological exam: Present: alert, oriented X3, CN II-XII intact Psychiatric exam: Present: normal affect, normal mood Skin exam: Present: warm, dry, intact, normal color. Absent: rash Course Vital Signs 08/13/23 08/13/23 18:27 20:09 Temperature 98 F Pulse Rate 59 L 67 Respiratory 20 16 Rate Blood Pressure 145/75 135/84 O2 Sat by Pulse 99 95 Oximetry - Reevaluation(s) Reevaluation #1: Medical records reviewed Reevaluation #2: Patient symptoms improved Reevaluation #3: Patient informed of results and questions answered Reevaluation #4: Was pt. sent in by a medical professional or institution (HAROON Rose, ELECTRICAL APPLIANCE REPAIRER, urgent care, hospital, or prison...) When possible be specific @ -no Did you speak to anyone other than the patient for history (EMS, parent, family, police, friend...)? What history was obtained from this source @ -no Did you review nursing and triage notes (agree or disagree)? Why? @ -agree Are old charts reviewed (outside hosp., previous admission, EMS record, old EKG, old radiological studies, urgent care reports/EKG's, prison records)? Report findings @ -yes Differential Diagnosis (chest pain, altered mental status, abdominal pain women, abdominal pain men, vaginal bleeding, weakness, fever, dyspnea, syncope, headache, dizziness, GI bleed, back pain, seizure, CVA, palpatations, mental health, musculoskeletal)? @ -prior EKG interpreted by me (3pts min.). @ -no X-rays interpreted by me (1pt min.). @ -no CT interpreted by me (1pt min.). @ -no U/S interpreted by me (1pt. min.). @ -no What testing was considered but not performed or refused? (CT, X-rays, U/S, labs)? Why? @ -none What meds were considered but not given or refused? Why? @ -none Did you discuss the management of the patient with other professionals (professionals i.e. HAROON Rose, ELECTRICAL APPLIANCE REPAIRER, lab, RT, psych nurse, sexual assault social worker, tile machine operator, t eacher, administrative officer, pillowcase sewer)? Give summary @ -no Was smoking cessation discussed for >3mins.? @ -no Was critical care preformed (if so, how long)? @ -no Were there social determinants of health that impacted care today? How? (Homelessness, low income, unemployed, alcoholism, drug addiction, transportation, low edu. Level, literacy, decrease access to med. care, [facility], rehab)? @ -none Was there de-escalation of care discussed even if they declined (Discuss DNR or withdrawal of care, Hospice)? DNR status @ -no What co-morbidities impacted this encounter? (DM, HTN, Smoking, COPD, CAD, Cancer, CVA, ARF, Chemo, Hep., AIDS, mental health diagnosis, sleep apnea, morbid obesity)? @ -none Was patient admitted / discharged? Hospital course, mention meds given and route, prescriptions, significant lab abnormalities, going to OR and other pertinent info. @ - 78 male after a fall. Patient comes in for evaluation regarding recent fall with no signs of injury. Patient is in no acute distress has no complaints and can be discharged home, patient has no complaints Discharge Undiagnosed new problem with uncertain prognosis? @ -no Drug Therapy requiring intensive monitoring for toxicity (Heparin, Nitro, Insulin, Cardizem)? @ -no Were any procedures done? @ -no Diagnosis/symptom? @ -Fall Acute, or Chronic, or Acute on Chronic? @ -Acute Uncomplicated (without systemic symptoms) or Complicated (systemic symptoms)? @ -Complicated Side effects of treatment? @ -no Exacerbation, Progression, or Severe Exacerbation? @ -exacerbation Poses a threat to life or bodily function? How? (Chest pain, [place], [place], pneumonia, PE, COPD, DKA, ARF, appy, cholecystitis, CVA, Diverticulitis, Homicidal, Suicidal, threat to staff... and all critical care pts) @ -yes with extremes of age and fall Medical Decision Making - Medical Decision Making 78 male after a fall. Patient comes in for evaluation regarding recent fall with no signs of injury. Patient is in no acute distress has no complaints and can be discharged home Disposition Clinical Impression: Fall Disposition: HOME SELF-CARE Condition: Fair Instructions (If sedation given, give patient instructions): Fall Prevention for Older Adults (ED) Is patient prescribed a controlled substance at d/c from ED?: No Referrals: Eleuterio Simms MD [Primary Care Provider] - 1-2 days Time of Disposition: 19:20
[2023-08-13 21:04] VITALS: BP 135/84; PULSE 67; RESP 16
== END 2023-08-13 20:09 | disposition home or self-care (01) ==
LOC: EC 18:25
DX: Z04.3 Encounter for examination and observation following other accident (principal); Z87.891 Personal history of nicotine dependence
CPT/HCPCS: 99284

== ENCOUNTER 2023-08-29 16:31 | Emergency (ER) | payer MEDICARE ==
--- NOTE | 2023-08-29 16:51 | ED ---
General Adult HPI - General Stated complaint: Fall Time Seen by Provider: 08/29/23 16:32 Source: patient, police, RN notes reviewed Limitations: no limitations - History of Present Illness Initial comments: 78-year-old male presents emergency department from [facility] [place] chief complaint of head injury. Patient had a fall which happened at alf. Patient has abrasion to the forehead unsure of loss conscious. Patient does complain of mild discomfort patient was placed in a c-collar by EMS. Patient denies any blood thinners patient offers no complaints. No extremity injuries - Related Data Home Medications Medication Instructions Recorded Confirmed Carbidopa/Levodopa 1 tab PO QID 12/19/21 06/13/23 [Carbidopa-Levodopa 25-100 Tab] Metoprolol Tartrate [Lopressor] 25 mg PO BID 12/19/21 06/13/23 amantadine HCL [Amantadine] 100 mg PO TID 12/19/21 06/13/23 Dorzolamide-Timol 2.23%/0.68% 1 drop LEFT EYE BID 06/13/23 06/13/23 [Cosopt] Latanoprost [Latanoprost 0.005%] 1 drop BOTH EYES HS 06/13/23 06/13/23 Previous Rx's Medication Instructions Recorded Acetaminophen Tab [Tylenol] 650 mg PO Q6HR PRN tab 06/18/23 Famotidine [Pepcid] 20 mg PO DAILY tab 06/18/23 Folic Acid 1 mg PO DAILY tab 06/18/23 Ofloxacin 0.3% Ophth Soln [Ocuflox 2 drops LEFT EYE Q4HR 7 Days ml 06/18/23 Ophth Soln] Olmesartan/Hydrochlorothiazide 1 tab PO HS #0 06/18/23 [Olmesartan-Hctz 40-12.5 mg Tab] QUEtiapine [SEROquel] 25 mg PO DAILY PRN 30 Days #30 tab 06/18/23 QUEtiapine [SEROquel] 25 mg PO HS tab 06/18/23 Allergies Allergy/AdvReac Type Severity Reaction Status Date / Time No Known Allergies Allergy Verified 08/29/23 16:50 Review of Systems ROS Statement: Those systems with pertinent positive or pertinent negative responses have been documented in the HPI. ROS Other: All systems not noted in ROS Statement are negative. Past Medical History Past Medical History: Hypertension Additional Past Medical History / Comment(s): Parkinson's History of Any Multi-Drug Resistant Organisms: None Reported Past Surgical History: Orthopedic Surgery Additional Past Surgical History / Comment(s): left knee Past Anesthesia/Blood Transfusion Reactions: No Reported Reaction Past Psychological History: No Psychological Hx Reported Smoking Status: Former smoker Past Alcohol Use History: None Reported Past Drug Use History: None Reported General Exam Limitations: no limitations General appearance: alert, in no apparent distress Head exam: Present: atraumatic, normocephalic. Absent: normal inspection (Abrasion frontal aspect) Eye exam: Present: normal appearance, PERRL, EOMI. Absent: scleral icterus, conjunctival injection, periorbital swelling ENT exam: Present: normal exam, normal oropharynx, mucous membranes moist Neck exam: Present: normal inspection. Absent: tenderness, meningismus, full ROM (Patient in c-collar), lymphadenopathy Respiratory exam: Present: normal lung sounds bilaterally. Absent: respiratory distress, wheezes, rales, rhonchi, stridor Cardiovascular Exam: Present: regular rate, normal rhythm, normal heart sounds. Absent: systolic murmur, diastolic murmur, rubs, gallop, clicks GI/Abdominal exam: Present: soft, normal bowel sounds. Absent: distended, tenderness, guarding, rebound, rigid Neurological exam: Present: alert, CN II-XII intact Skin exam: Present: warm, dry, intact, normal color. Absent: rash Course Vital Signs 08/29/23 16:47 Temperature 98.1 F Pulse Rate 65 Respiratory 16 Rate Blood Pressure 123/72 O2 Sat by Pulse 97 Oximetry Medical Decision Making - Medical Decision Making Was pt. sent in by a medical professional or institution (, PA, RESOURCE RECOVERY SPECIALIST, urgent care, hospital, or alf...) When possible be specific @ -long term Did you speak to anyone other than the patient for history (EMS, parent, family, police, friend...)? What history was obtained from this source @ -No Did you review nursing and triage notes (agree or disagree)? Why? @ -I reviewed and agree with nursing and triage notes Were old charts reviewed (outside hosp., previous admission, EMS record, old EKG, old radiological studies, urgent care reports/EKG's, alf records)? Report findings @ -No old charts were reviewed Differential Diagnosis (chest pain, altered mental status, abdominal pain women, abdominal pain men, vaginal bleeding, weakness, fever, dyspnea, syncope, headache, dizziness, GI bleed, back pain, seizure, CVA, palpatations, mental health, musculoskeletal)? @ -Scalp abrasion, intracranial hemorrhage, skull fracture, cervical fracture, concussion EKG interpreted by me (3pts min.). @ -[None X-rays interpreted by me (1pt min.). @ -None done CT interpreted by me (1pt min.). @ -CT brain, C-spine showing no acute intracranial hemorrhage, mass effect or c ervical fracture there are degenerative changes. U/S interpreted by me (1pt. min.). @ -None done What testing was considered but not performed or refused? (CT, X-rays, U/S, labs)? Why? @ -None What meds were considered but not given or refused? Why? @ -None Did you discuss the management of the patient with other professionals (professionals i.e. , PA, RESOURCE RECOVERY SPECIALIST, lab, RT, psych nurse, director social, brooch maker novelty, teacher, control officer manager, comp field case manager)? Give summary @ -No Was smoking cessation discussed for >3mins.? @ -No Was critical care preformed (if so, how long)? @ -No Were there social determinants of health that impacted care today? How? (Homelessness, low income, unemployed, alcoholism, drug addiction, transportation, low edu. Level, literacy, decrease access to med. care, half-way, rehab)? @ -No Was there de-escalation of care discussed even if they declined (Discuss DNR or withdrawal of care, Hospice)? DNR status @ -No What co-morbidities impacted this encounter? (DM, HTN, Smoking, COPD, CAD, Cancer, CVA, ARF, Chemo, Hep., AIDS, mental health diagnosis, sleep apnea, morbid obesity)? @ -None Was patient admitted / discharged? Hospital course, mention meds given and route, prescriptions, significant lab abnormalities, going to OR and other pertinent info. @ -Discharge patient CT is unremarkable. Patient is at current baseline will be discharged back to an alf return for as discussed. Undiagnosed new problem with uncertain prognosis? @ -No Drug Therapy requiring intensive monitoring for toxicity (Heparin, Nitro, Insulin, Cardizem)? @ -No Were any procedures done? @ -No Diagnosis/symptom? @ -Close head injury Acute, or Chronic, or Acute on Chronic? @ -Acute Uncomplicated (without systemic symptoms) or Complicated (systemic symptoms)? @ -Uncomplicated Side effects of treatment? @ -No Exacerbation, Progression, or Severe Exacerbation? @ -No Poses a threat to life or bodily function? How? (Chest pain, [place], [place], pneumonia, PE, COPD, DKA, ARF, appy, cholecystitis, CVA, Diverticulitis, Homicidal, Suicidal, threat to staff... and all critical care pts) @ -No Disposition Clinical Impression: Fall, Closed head injury Disposition: HOME SELF-CARE Condition: Stable Instructions (If sedation given, give patient instructions): Head Injury (ED) Additional Instructions: Please return to the Emergency Department if symptoms worsen or any other concerns. Is patient prescribed a controlled substance at d/c from ED?: No Referrals: Eleuterio Simms MD [Primary Care Provider] - 1-2 days Time of Disposition: 17:55
--- NOTE | 2023-08-29 17:37 | CT ---
EXAMINATION TYPE: CT brain cspine wo con CT DLP: 1328.5 mGycm, Automated exposure control for dose reduction was used. DATE OF EXAM: 08/29/2023 5:04 PM COMPARISON: None. CLINICAL INDICATION:Male, 78 years old with history of trauma, pain; Fall, hit head. No thinners, no LOC. TECHNIQUE: Brain: Multiple axial CT images of the brain were obtained without IV contrast. Cspine: Axial CT images from the skull base to the inferior aspect of T2 we obtained without intraven ous contrast. Coronal and sagittal reformatted images were also reviewed. FINDINGS: Brain: Extra-axial spaces: No abnormal extra-axial fluid collections. Ventricular system: Dilatation in proportion to cerebral atrophy. Cerebral parenchyma: Cerebral atrophy. No acute intraparenchymal hemorrhage or mass effect. The suarez -white junction is well differentiated. Cerebellum: Unremarkable. Mass effect: No evidence of midline shift. Intracranial vasculature: Atherosclerotic calcifications of the intracranial vessels. Soft tissues: Normal. Calvarium/osseous structures: No depressed skull fracture. Paranasal sinuses and mastoid air cells: Clear. Visualized orbits: Bilateral aphakia Cervical spine: Fracture: None. Osseous structures: Multilevel degenerative disc disease changes with endplate spurring and disc oste ophyte complex's. Vertebral alignment: Within normal limits. Spinal canal/Neural Foramina: No evidence of significant spinal canal narrowing. No evidence for sign ificant neural foraminal stenosis. Neck soft tissues: Prevertebral soft tissues are within normal limits. Other: The airway is patent. The lung apices are clear. IMPRESSION: 1. No acute intracranial process. 2. Nonspecific white matter changes, likely secondary to chronic small vessel ischemic disease. 3. No evidence of cervical spine fracture. 4. Mild multilevel degenerative disc disease.
[2023-08-29 18:54] VITALS: BP 118/70; PULSE 66; RESP 18; TEMP 98.4
== END 2023-08-29 19:17 | disposition home or self-care (01) ==
LOC: EC 16:31
DX: S00.81XA Abrasion of other part of head, initial encounter (principal); Z87.891 Personal history of nicotine dependence; W18.30XA Fall on same level, unspecified, initial encounter
CPT/HCPCS: 70450; 72125; 99285

== ENCOUNTER 2023-08-31 11:10 | Emergency (ER) | payer MEDICARE ==
[2023-08-31 11:37] LABS: Glucose,Whole Blood 107 mg/dL (70-110)
--- NOTE | 2023-08-31 11:41 | ED ---
Altered Mental Status HPI - General Chief Complaint: Altered Mental Status Stated Complaint: AMS Time Seen by Provider: 08/31/23 11:26 Source: patient, EMS, RN notes reviewed Mode of arrival: EMS Limitations: altered mental status - History of Present Illness Initial Comments: This is an 78-year-old male who presents to the emergency department for altered mental status. Patient presents from [facility] for altered mental status. Patient had a fall on 08/28 and was evaluated in the emergency department here. Workup was negative and he was discharged back to [facility]. This morning when they went to check on the patient, they said that he was alert and oriented x 1- 2, Whereas he is usually alert and oriented x 3. Patient however is able to tell me his name, location, the month, and president. States that he currently feels fine and has no complaints. MD Complaint: altered mental status - Related Data Home Medications Medication Instructions Recorded Confirmed Carbidopa/Levodopa 1 tab PO QID@09,13,17,21 12/19/21 08/31/23 [Carbidopa-Levodopa 25-100 Tab] Metoprolol Tartrate [Lopressor] 25 mg PO BID 12/19/21 08/31/23 amantadine HCL [Amantadine] 100 mg PO TID@0900,1300,2100 12/19/21 08/31/23 Dorzolamide-Timol 2.23%/0.68% 1 drop LEFT EYE BID 06/13/23 08/31/23 [Cosopt] Latanoprost [Latanoprost 0.005%] 1 drop BOTH EYES HS 06/13/23 08/31/23 ALPRAZolam [Xanax] 0.25 mg PO BID PRN 08/31/23 08/31/23 Cholecalciferol (Vitamin D3) 50 mcg PO DAILY 08/31/23 08/31/23 [Vitamin D3 (50 Mcg = 2000 Iu)] Lactose-Reduced Food [Ensure Plus] 1 can PO BID@0900,1700 08/31/23 08/31/23 Losartan-Hctz 50-12.5 mg [Hyzaar 1 tab PO DAILY 08/31/23 08/31/23 50-12.5] Melatonin 5 mg PO HS PRN 08/31/23 08/31/23 Previous Rx's Medication Instructions Recorded Acetaminophen Tab [Tylenol] 650 mg PO Q6HR PRN tab 06/18/23 Famotidine [Pepcid] 20 mg PO DAILY tab 06/18/23 Folic Acid 1 mg PO DAILY tab 06/18/23 Allergies Allergy/AdvReac Type Severity Reaction Status Date / Time No Known Allergies Allergy Verified 08/31/23 12:02 Review of Systems ROS Statement: Those systems with pertinent positive or pertinent negative responses have been documented in the HPI. ROS Other: All systems not noted in ROS Statement are negative. Past Medical History Past Medical History: Dementia, GERD/Reflux, Hypertension Additional Past Medical History / Comment(s): Parkinson's, CKD, metabolic encephalopy, gluacoma R eye History of Any Multi-Drug Resistant Organisms: None Reported Past Surgical History: Orthopedic Surgery Additional Past Surgical History / Comment(s): left knee Past Anesthesia/Blood Transfusion Reactions: No Reported Reaction Past Psychological History: No Psychological Hx Reported Smoking Status: Former smoker Past Alcohol Use History: None Reported Past Drug Use History: None Reported General Exam Limitations: altered mental status General appearance: alert, in no apparent distress Head exam: Present: atraumatic, normocephalic, normal inspection Eye exam: Present: normal appearance, PERRL, EOMI. Absent: scleral icterus, conjunctival injection, periorbital swelling Respiratory exam: Present: normal lung sounds bilaterally. Absent: respiratory distress, wheezes, rales, rhonchi, stridor Cardiovascular Exam: Present: regular rate, normal rhythm, normal heart sounds. Absent: systolic murmur, diastolic murmur, rubs, gallop, clicks Neurological exam: Present: alert, oriented X3, CN II-XII intact Expanded Cerebellar function: Finger to Nose: Normal, Romberg: Normal Upper motor neuron: Pronator Drift: Normal Psychiatric exam: Present: normal affect, normal mood Skin exam: Present: warm, dry, intact, normal color. Absent: rash Course Vital Signs 08/31/23 08/31/23 08/31/23 11:15 12:13 13:42 Pulse Rate 85 75 75 Respiratory 20 18 18 Rate Blood Pressure 151/102 140/101 133/87 O2 Sat by Pulse 96 95 95 Oximetry Medical Decision Making - Medical Decision Making This is an 78 year old male who presents to the emergency department for altered mental status. Was pt. sent in by a medical professional or institution? @ -No Did you speak to anyone other than the patient for history? @ -[facility] provided the majority of the information. Did you review nursing and triage notes? @ -Yes, and I agree, it is accurate with regards to the patient's symptoms. Were old charts reviewed? @ -CT scan of the brain and c-spine from 08/29/23 demonstrating nonspecific white matter changes without any acute process. Differential Diagnosis? @ -Differential Altered Mental Status: Hypoglycemia, DKA, hypercapnia, ETOH, overdose, CO poisoning, trauma, myxedema coma, HTN encephalopathy, infection, encephalitis, psychosis, intercranial hemorrhage, hepatic encephalopathy, meningitis, CVA, this is not meant to be an all-inclusive list EKG interpreted by me (3pts min.)? @ -EKG interpreted by me demonstrating the following: Sinus rhythm. Ventricular rate 76 bpm, ND interval 191 ms, QRS duration 91 ms, QTc 408 ms. X-rays interpreted by me (1pt min.)? @ -Chest x-ray obtained, my interpretation identifies no localized consolidations or infiltrates. CT interpreted by me (1pt min.)? @ -Computed tomography scan of the brain obtained. My interpretation identifies no evidence of an acute intracranial hemorrhage or skull fracture. U/S interpreted by me (1pt. min.)? @ -Not obtained What testing was considered but not performed? (CT, X-rays, U/S, labs)? Why? @ -None What meds were considered but not given? Why? @ -None Did you discuss the management of the patient with other professionals? @ -No Did you reconcile home meds? @ -No Was smoking cessation discussed for >3mins.? @ -No Was critical care preformed (if so, how long)? @ -No Were there social determinants of health that impacted care today? How? (Homelessness, low income, unemployed, alcoholism, drug addiction, transportation, low edu. Level, literacy, decrease access to med. care, shelter, rehab)? @ -No Was there de-escalation of care discussed even if they declined? (Discuss DNR or withdrawal of care, Hospice)? @ -No What co-morbidities impacted this encounter? (DM, HTN, Smoking, COPD, CAD, Cancer, CVA, Hep., AIDS, mental health diagnosis, sleep apnea, morbid obesity)? @ -Parkinson's, dementia, HTN, CKD Was patient admitted / discharged? @ -Discharged. Lab work fairly unremarkable. Urinalysis negative for signs of infection. Chest x-ray reveals no acute process. CT scan of the brain obtained also revealing no acute findings. On my evaluation of the patient he was alert and oriented x 4 and had no complaints. Given that the patient is already at an extended care facility and is not currently altered, he can be discharged back. Patient discharged back to [facility] via EMS in stable condition. Undiagnosed new problem with uncertain prognosis? @ -None Drug Therapy requiring intensive monitoring for toxicity (Heparin, Nitro, Insulin, Cardizem)? @ -None Were any procedures done? @ -None Diagnosis/symptom? @ -Confusion Acute, or Chronic, or Acute on Chronic? @ -Acute Uncomplicated (without systemic symptoms) or Complicated (systemic symptoms)? @ -Uncomplicated Side effects of treatment? @ -None Exacerbation, Progression, or Severe Exacerbation] @ -Not applicable Poses a threat to life or bodily function? @ -No Return precautions reviewed in depth, the patient is instructed to return to the emergency department with any new, worsening, or concerning symptoms. Patient verbalized understanding. This case was discussed in detail with the attending ED physician, Dr. Villatoro. Presentation, findings, and treatment plan discussed in detail as well. - Lab Data Result diagrams: 08/31/23 11:36 08/31/23 11:36 Lab Results 08/31/23 08/31/23 08/31/23 Range/Units 11:36 11:36 11:36 WBC 6.2 (3.8-10.6) k/uL RBC 4.97 (4.30-5.90) m/uL Hgb 15.1 (13.0-17.5) gm/dL Hct 47.1 (39.0-53.0) % MCV 94.8 (80.0-100.0) fL MCH 30.4 (25.0-35.0) pg MCHC 32.1 (31.0-37.0) g/dL RDW 13.5 (11.5-15.5) % Plt Count 147 L (150-450) k/uL MPV 8.0 Neutrophils % 80 % Lymphocytes % 11 % Monocytes % 7 % Eosinophils % 1 % Basophils % 0 % Neutrophils # 4.9 (1.3-7.7) k/uL Lymphocytes # 0.7 L (1.0-4.8) k/uL Monocytes # 0.4 (0-1.0) k/uL Eosinophils # 0.1 (0-0.7) k/uL Basophils # 0.0 (0-0.2) k/uL PT 11.0 (10.0-12.5) sec INR 1.0 (<1.2) APTT 26.2 (22.0-30.0) sec Sodium 144 (137-145) mmol/L Potassium 4.0 (3.5-5.1) mmol/L Chloride 108 H (98-107) mmol/L Carbon Dioxide 24 (22-30) mmol/L Anion Gap 12 mmol/L BUN 43 H (9-20) mg/dL Creatinine 2.13 H (0.66-1.25) mg/dL Est GFR (CKD-EPI)AfAm 33 (>60 ml/min/1.73 sqM) Est GFR (CKD-EPI)NonAf 28 (>60 ml/min/1.73 sqM) Glucose 112 H (74-99) mg/dL POC Glucose (mg/dL) (70-110) mg/dL POC Glu [employer] ID Calcium 10.4 H (8.4-10.2) mg/dL Magnesium 2.3 (1.6-2.3) mg/dL Total Bilirubin 0.9 (0.2-1.3) mg/dL AST 31 (17-59) U/L ALT 9 (4-49) U/L Alkaline Phosphatase 116 (38-126) U/L Ammonia (<30) umol/L Troponin I (0.000-0.034) ng/mL Total Protein 7.1 (6.3-8.2) g/dL Albumin 4.4 (3.5-5.0) g/dL Urine Color Urine Appearance (Clear) Urine pH (5.0-8.0) Ur Specific [place] (1.001-1.035) Urine Protein (Negative) Urine Glucose (UA) (Negative) Urine Ketones (Negative) Urine Blood (Negative) Urine Nitrite (Negative) Urine Bilirubin (Negative) Urine Urobilinogen (<2.0) mg/dL Ur Leukocyte Esterase (Negative) Urine Opiates Screen (NotDetected) Ur Oxycodone Screen (NotDetected) Urine Methadone Screen (NotDetected) Ur Barbiturates Screen (NotDetected) U Tricyclic Antidepress (NotDetected) Ur Phencyclidine Scrn (NotDetected) Ur Amphetamines Screen (NotDetected) U Methamphetamines Scrn (NotDetected) U Benzodiazepines Scrn (NotDetected) Urine Cocaine Screen (NotDetected) U Marijuana (THC) Screen (NotDetected) 08/31/23 08/31/23 08/31/23 Range/Units 11:36 11:36 11:36 WBC (3.8-10.6) k/uL RBC (4.30-5.90) m/uL Hgb (13.0-17.5) gm/dL Hct (39.0-53.0) % MCV (80.0-100.0) fL MCH (25.0-35.0) pg MCHC (31.0-37.0) g/dL RDW (11.5-15.5) % Plt Count (150-450) k/uL MPV Neutrophils % % Lymphocytes % % Monocytes % % Eosinophils % % Basophils % % Neutrophils # (1.3-7.7) k/uL Lymphocytes # (1.0-4.8) k/uL Monocytes # (0-1.0) k/uL Eosinophils # (0-0.7) k/uL Basophils # (0-0.2) k/uL PT (10.0-12.5) sec INR (<1.2) APTT (22.0-30.0) sec Sodium (137-145) mmol/L Potassium (3.5-5.1) mmol/L Chloride (98-107) mmol/L Carbon Dioxide (22-30) mmol/L Anion Gap mmol/L BUN (9-20) mg/dL Creatinine (0.66-1.25) mg/dL Est GFR (CKD-EPI)AfAm (>60 ml/min/1.73 sqM) Est GFR (CKD-EPI)NonAf (>60 ml/min/1.73 sqM) Glucose (74-99) mg/dL POC Glucose (mg/dL) 107 (70-110) mg/dL POC Glu [employer] ID Yuliet Warren Calcium (8.4-10.2) mg/dL Magnesium (1.6-2.3) mg/dL Total Bilirubin (0.2-1.3) mg/dL AST (17-59) U/L ALT (4-49) U/L Alkaline Phosphatase (38-126) U/L Ammonia <9 (<30) umol/L Troponin I 0.012 (0.000-0.034) ng/mL Total Protein (6.3-8.2) g/dL Albumin (3.5-5.0) g/dL Urine Color Urine Appearance (Clear) Urine pH (5.0-8.0) Ur Specific [place] (1.001-1.035) Urine Protein (Negative) Urine Glucose (UA) (Negative) Urine Ketones (Negative) Urine Blood (Negative) Urine Nitrite (Negative) Urine Bilirubin (Negative) Urine Urobilinogen (<2.0) mg/dL Ur Leukocyte Esterase (Negative) Urine Opiates Screen (NotDetected) Ur Oxycodone Screen (NotDetected) Urine Methadone Screen (NotDetected) Ur Barbiturates Screen (NotDetected) U Tricyclic Antidepress (NotDetected) Ur Phencyclidine Scrn (NotDetected) Ur Amphetamines Screen (NotDetected) U Methamphetamines Scrn (NotDetected) U Benzodiazepines Scrn (NotDetected) Urine Cocaine Screen (NotDetected) U Marijuana (THC) Screen (NotDetected) 08/31/23 08/31/23 Range/Units 12:14 12:14 WBC (3.8-10.6) k/uL RBC (4.30-5.90) m/uL Hgb (13.0-17.5) gm/dL Hct (39.0-53.0) % MCV (80.0-100.0) fL MCH (25.0-35.0) pg MCHC (31.0-37.0) g/dL RDW (11.5-15.5) % Plt Count (150-450) k/uL MPV Neutrophils % % Lymphocytes % % Monocytes % % Eosinophils % % Basophils % % Neutrophils # (1.3-7.7) k/uL Lymphocytes # (1.0-4.8) k/uL Monocytes # (0-1.0) k/uL Eosinophils # (0-0.7) k/uL Basophils # (0-0.2) k/uL PT (10.0-12.5) sec INR (<1.2) APTT (22.0-30.0) sec Sodium (137-145) mmol/L Potassium (3.5-5.1) mmol/L Chloride (98-107) mmol/L Carbon Dioxide (22-30) mmol/L Anion Gap mmol/L BUN (9-20) mg/dL Creatinine (0.66-1.25) mg/dL Est GFR (CKD-EPI)AfAm (>60 ml/min/1.73 sqM) Est GFR (CKD-EPI)NonAf (>60 ml/min/1.73 sqM) Glucose (74-99) mg/dL POC Glucose (mg/dL) (70-110) mg/dL POC Glu [employer] ID Calcium (8.4-10.2) mg/dL Magnesium (1.6-2.3) mg/dL Total Bilirubin (0.2-1.3) mg/dL AST (17-59) U/L ALT (4-49) U/L Alkaline Phosphatase (38-126) U/L Ammonia (<30) umol/L Troponin I (0.000-0.034) ng/mL Total Protein (6.3-8.2) g/dL Albumin (3.5-5.0) g/dL Urine Color Light Yellow Urine Appearance Clear (Clear) Urine pH 6.5 (5.0-8.0) Ur Specific [place] 1.017 (1.001-1.035) Urine Protein Trace H (Negative) Urine Glucose (UA) Negative (Negative) Urine Ketones Negative (Negative) Urine Blood Negative (Negative) Urine Nitrite Negative (Negative) Urine Bilirubin Negative (Negative) Urine Urobilinogen 2.0 (<2.0) mg/dL Ur Leukocyte Esterase Negative (Negative) Urine Opiates Screen Not Detected (NotDetected) Ur Oxycodone Screen Not Detected (NotDetected) Urine Methadone Screen Not Detected (NotDetected) Ur Barbiturates Screen Not Detected (NotDetected) U Tricyclic Antidepress Not Detected (NotDetected) Ur Phencyclidine Scrn Not Detected (NotDetected) Ur Amphetamines Screen Not Detected (NotDetected) U Methamphetamines Scrn Not Detected (NotDetected) U Benzodiazepines Scrn Not Detected (NotDetected) Urine Cocaine Screen Not Detected (NotDetected) U Marijuana (THC) Screen Not Detected (NotDetected) - Radiology Data Radiology results: report reviewed, image reviewed Disposition Clinical Impression: Confusion Disposition: HOME SELF-CARE Instructions (If sedation given, give patient instructions): Altered Mental Status (ED) Additional Instructions: Return to the emergency department with any new, worsening, or concerning symptoms. Follow up with your primary care provider in 1-2 days. Is patient prescribed a controlled substance at d/c from ED?: No Referrals: Eleuterio Simms MD [Primary Care Provider] - 1-2 days Time of Disposition: 13:34
[2023-08-31 11:49] LABS: Basophils % (A) 0 %; Eosinophils # (A) 0.1 k/uL (0-0.7); Eosinophils % (A) 1 %; HCT 47.1 % (39.0-53.0); HGB 15.1 gm/dL (13.0-17.5); Lymphocytes # (A) 0.7 k/uL (1.0-4.8); Lymphocytes % (A) 11 %; MCH 30.4 pg (25.0-35.0); MCHC 32.1 g/dL (31.0-37.0); MCV 94.8 fL (80.0-100.0); Monocytes # (A) 0.4 k/uL (0-1.0); Monocytes % (A) 7 %; Neutrophils # (A) 4.9 k/uL (1.3-7.7); Neutrophils % (A) 80 %; Platelet Count 147 k/uL (150-450); RBC 4.97 m/uL (4.30-5.90); RDW 13.5 % (11.5-15.5); WBC 6.2 k/uL (3.8-10.6)
[2023-08-31 12:02] LABS: ALT 9 U/L (4-49); AST 31 U/L (17-59); African American GFR (CKD) 33 (>60 ml/min/1.73 sqM); Albumin 4.4 g/dL (3.5-5.0); Alkaline Phosphatase 116 U/L (38-126); Anion Gap 12 mmol/L; Blood Urea Nitrogen 43 mg/dL (9-20); Calcium 10.4 mg/dL (8.4-10.2); Carbon Dioxide 24 mmol/L (22-30); Chloride 108 mmol/L (98-107); Glucose 112 mg/dL (74-99); Magnesium 2.3 mg/dL (1.6-2.3); Non-African American GFR(CKD) 28 (>60 ml/min/1.73 sqM); Sodium 144 mmol/L (137-145); Total Bilirubin 0.9 mg/dL (0.2-1.3); Total Protein 7.1 g/dL (6.3-8.2)
[2023-08-31 12:04] LABS: Partial Thromboplastin Time 26.2 sec (22.0-30.0)
--- NOTE | 2023-08-31 12:11 | CT ---
EXAMINATION TYPE: CT brain wo con DATE OF EXAM: 08/31/2023 COMPARISON: 08/29/2023 INDICATION: ams DLP: 1271.5 mGycm, Automated exposure control for dose reduction was used. CONTRAST: None CT of the brain is performed utilizing 3 mm thick sections through the posterior fossa and 3 mm thick sections through the remaining calvarium. Study is performed within 24 hours of arrival to the hosp [facility]. No abnormal hyperdensity is present to suggest an acute intracranial hemorrhage. No mass lesion is evident. No acute infarcts are evident. Some minimal chronic-appearing white matter change may be present, pre sent previously Ventricles and sulci are appropriate for the patient age. Paranasal sinuses and mastoid air cells within the [id number] are clear. IMPRESSION: 1. No acute intracranial process. Follow-up MRI can be performed as clinically indicated.
--- NOTE | 2023-08-31 12:16 | XR ---
EXAMINATION TYPE: XR chest 2V DATE OF EXAM: 08/31/2023 COMPARISON: NONE HISTORY: Shortness of breath TECHNIQUE: Frontal and lateral views of the chest are obtained. FINDINGS: Scattered senescent parenchymal changes noted. Hyperinflation compatible with COPD. No evidence for infiltrate. No evidence for atelectasis. Heart size is stable. Mediastinal structures are stable and grossly unremarkable. No evidence for hilar prominence. Degenerative changes dorsal spine. IMPRESSION: 1. No evidence for acute pulmonary disease.
[2023-08-31 12:23] LABS: Appearance,Urine Clear (Clear); Bilirubin,Urine Negative (Negative); Blood,Urine Negative (Negative); Color,Urine Light Yellow; Glucose,Urine (UA) Negative (Negative); Ketones,Urine Negative (Negative); Leukocyte Esterase,Urine Negative (Negative); Nitrite,Urine Negative (Negative); PH, Urine 6.5 (5.0-8.0); Protein,Urine Trace (Negative); Specific Gravity,Urine 1.017 (1.001-1.035)
[2023-08-31 12:32] LABS: Amphetamine Screen,Urine Not Detected (NotDetected); Barbiturate Screen,Urine Not Detected (NotDetected); Benzodiazepines Screen,Urine Not Detected (NotDetected); Cocaine Screen,Urine Not Detected (NotDetected); Methadone Screen, Urine Not Detected (NotDetected); Opiate Screen,Urine Not Detected (NotDetected); Oxycodone Screen, Urine Not Detected (NotDetected); Phencyclidine Screen,Urine Not Detected (NotDetected); Tricyclic Antidepressant,Urine Not Detected (NotDetected); Urn Cannabinoid Scrn Not Detected (NotDetected)
[2023-08-31] MEDS: SODIUM CHLORIDE 0.9% 1,000 ML IV STA (12:39)
[2023-08-31 12:54] VITALS: PULSE 75; RESP 18
[2023-08-31 14:14] VITALS: BP 133/87
== END 2023-08-31 14:38 | disposition home or self-care (01) ==
LOC: EC 11:10
DX: R41.0 Disorientation, unspecified (principal); Z87.891 Personal history of nicotine dependence
CPT/HCPCS: 36415; 70450; 71046; 80053; 80306; 81003; 82140; 83735; 84484; 85025; 85610; 85730; 93005; 96360; 96361; 99285

== ENCOUNTER 2023-09-07 23:53 | Inpatient (IN) | payer MEDICARE ==
[2023-09-08 00:14] LABS: Glucose,Whole Blood 103 mg/dL (70-110)
--- NOTE | 2023-09-08 00:47 | ED ---
General Adult HPI - General Chief complaint: Altered Mental Status Stated complaint: ALT MENTAL Time Seen by Provider: 09/07/23 23:56 Source: patient, EMS, RN notes reviewed, old records reviewed Mode of arrival: EMS Limitations: altered mental status - History of Present Illness Initial comments: 78-year-old male history of dementia and Parkinson's presents from assisted living facility with reported aggression and agitation. Patient calm and rossi ative at this time. Patient currently had been given Xanax which is prescribed to him prior to transport. Patient himself has no complaints at the time my evaluation. He is slow to respond. Denies pain complaints. Vital signs are stable. He has a normal blood sugar. - Related Data Home Medications Medication Instructions Recorded Confirmed Carbidopa/Levodopa 1 tab PO QID@09,13,,21 12/19/21 08/31/23 [Carbidopa-Levodopa 25-100 Tab] Metoprolol Tartrate [Lopressor] 25 mg PO BID 12/19/21 08/31/23 amantadine HCL [Amantadine] 100 mg PO TID@0900,1300,2100 12/19/21 08/31/23 Dorzolamide-Timol 2.23%/0.68% 1 drop LEFT EYE BID 06/13/23 08/31/23 [Cosopt] Latanoprost [Latanoprost 0.005%] 1 drop BOTH EYES HS 06/13/23 08/31/23 ALPRAZolam [Xanax] 0.25 mg PO BID PRN 08/31/23 08/31/23 Cholecalciferol (Vitamin D3) 50 mcg PO DAILY 08/31/23 08/31/23 [Vitamin D3 (50 Mcg = 2000 Iu)] Lactose-Reduced Food [Ensure Plus] 1 can PO BID@0900,1700 08/31/23 08/31/23 Losartan-Hctz 50-12.5 mg [Hyzaar 1 tab PO DAILY 08/31/23 08/31/23 50-12.5] Melatonin 5 mg PO HS PRN 08/31/23 08/31/23 Previous Rx's Medication Instructions Recorded Acetaminophen Tab [Tylenol] 650 mg PO Q6HR PRN tab 06/18/23 Famotidine [Pepcid] 20 mg PO DAILY tab 06/18/23 Folic Acid 1 mg PO DAILY tab 06/18/23 Allergies Allergy/AdvReac Type Severity Reaction Status Date / Time No Known Allergies Allergy Verified 09/08/23 00:29 Review of Systems ROS Statement: Those systems with pertinent positive or pertinent negative responses have been documented in the HPI. ROS Other: All systems not noted in ROS Statement are negative. Past Medical History Past Medical History: Dementia, GERD/Reflux, Hypertension Additional Past Medical History / Comment(s): Parkinson's, CKD, metabolic encephalopy, gluacoma R eye History of Any Multi-Drug Resistant Organisms: None Reported Past Surgical History: Orthopedic Surgery Additional Past Surgical History / Comment(s): left knee Past Anesthesia/Blood Transfusion Reactions: No Reported Reaction Past Psychological History: No Psychological Hx Reported Smoking Status: Former smoker Past Alcohol Use History: None Reported Past Drug Use History: None Reported General Exam General appearance: alert, in no apparent distress Head exam: Present: atraumatic, normocephalic Eye exam: Present: normal appearance, PERRL ENT exam: Present: normal exam Neck exam: Present: normal inspection. Absent: tenderness, meningismus Respiratory exam: Present: normal lung sounds bilaterally. Absent: respiratory distress, wheezes Cardiovascular Exam: Present: regular rate, normal rhythm GI/Abdominal exam: Present: soft. Absent: distended, tenderness Extremities exam: Present: normal inspection, normal capillary refill Neurological exam: Present: alert, CN II-XII intact. Absent: oriented X3 (2), motor sensory deficit Psychiatric exam: Present: normal affect, normal mood Skin exam: Present: warm, dry, intact Course Vital Signs 09/07/23 23:59 Temperature 98.5 F Pulse Rate 78 Respiratory 20 Rate Blood Pressure 117/63 O2 Sat by Pulse 95 Oximetry - Reevaluation(s) Reevaluation #1: 09/08/23 01:04 The patient's nurse was able to discuss with the son the increasing need for sedation and the fact that the current living situation is no longer safe for this patient. Medical Decision Making - Medical Decision Making Was pt. sent in by a medical professional or institution (, PA, POWERHOUSE MECHANIC HELPER, urgent care, hospital, or usp...) When possible be specific @ -No Did you speak to anyone other than the patient for history (EMS, parent, family, police, friend...)? What history was obtained from this source @ -No Did you review nursing and triage notes (agree or disagree)? Why? @ -I reviewed and agree with nursing and triage notes Were old charts reviewed (outside hosp., previous admission, EMS record, old EKG, old radiological studies, urgent care reports/EKG's, usp records)? Report findings @ -No old charts were reviewed Differential Diagnosis (chest pain, altered mental status, abdominal pain women, abdominal pain men, vaginal bleeding, weakness, fever, dyspnea, syncope, headache, dizziness, GI bleed, back pain, seizure, CVA, palpatations, mental health, musculoskeletal)? @Differential Altered Mental Status: Hypoglycemia, DKA, hypercapnia, ETOH, overdose, CO poisoning, trauma, myxedema coma, HTN encephalopathy, infection, encephalitis, psychosis, intercranial hemorrhage, hepatic encephalopathy, meningitis, CVA, this is not meant to be an all-inclusive list EKG interpreted by me (3pts min.). @EKG: Sinus rhythm rate of 73, SD interval 186, QRS duration 100, QTc [address] segment changes. X-rays interpreted by me (1pt min.). @ -None done CT interpreted by me (1pt min.). @ -None done U/S interpreted by me (1pt. min.). @ -None done What testing was considered but not performed or refused? (CT, X-rays, U/S, labs )? Why? @ -None What meds were considered but not given or refused? Why? @ -None Did you discuss the management of the patient with other professionals (professionals i.e. , PA, POWERHOUSE MECHANIC HELPER, lab, RT, psych nurse, family welfare social work professor, director product development, teacher, drug abuse resistance education officer, disease case manager rn)? Give summary @ -EMH Was smoking cessation discussed for >3mins.? @ -No Was critical care preformed (if so, how long)? @ -No Were there social determinants of health that impacted care today? How? (Homelessness, low income, unemployed, alcoholism, drug addiction, transportation, low edu. Level, literacy, decrease access to med. care, snf, rehab)? @ -No Was there de-escalation of care discussed even if they declined (Discuss DNR or withdrawal of care, Hospice)? DNR status @ -No What co-morbidities impacted this encounter? (DM, HTN, Smoking, COPD, CAD, Cancer, CVA, ARF, Chemo, Hep., AIDS, mental health diagnosis, sleep apnea, morbid obesity)? @ -Dementia, Parkinson's Was patient admitted / discharged? Hospital course, mention meds given and route, prescriptions, significant lab abnormalities, going to OR and other pertinent info. @ -[78-year-old male with increased agitation, worsening dementia. It is felt that this patient can no longer continue to reside where he does that his level of care has increased. Patient is calm and cooperative at the time my evaluation but has received significant amount of sedative medication today. He has chronic stable kidney disease, otherwise normal laboratory testing, urinalysis pending. He will be admitted with the likely need for higher level of care. Undiagnosed new problem with uncertain prognosis? @ -No Drug Therapy requiring intensive monitoring for toxicity (Heparin, Nitro, Insulin, Cardizem)? @ -No Were any procedures done? @ -No Diagnosis/symptom? @ -Delirium, agitation, dementia Acute, or Chronic, or Acute on Chronic? @ -Default Uncomplicated (without systemic symptoms) or Complicated (systemic symptoms)? @ -Default Side effects of treatment? @ -No Exacerbation, Progression, or Severe Exacerbation? @ -No Poses a threat to life or bodily function? How? (Chest pain, [place], NV, pneumonia, PE, COPD, DKA, ARF, appy, cholecystitis, CVA, Diverticulitis, Homicidal, Suicidal, threat to staff... and all critical care pts) @ -No - Lab Data Result diagrams: 09/08/23 00:13 09/08/23 00:13 Lab Results 09/08/23 09/08/23 09/08/23 Range/Units 00:12 00:13 00:13 WBC 5.8 (3.8-10.6) k/uL RBC 4.51 (4.30-5.90) m/uL Hgb 14.1 (13.0-17.5) gm/dL Hct 42.8 (39.0-53.0) % MCV 94.8 (80.0-100.0) fL MCH 31.3 (25.0-35.0) pg MCHC 33.0 (31.0-37.0) g/dL RDW 13.4 (11.5-15.5) % Plt Count 142 L (150-450) k/uL MPV 8.0 Neutrophils % 77 % Lymphocytes % 14 % Monocytes % 5 % Eosinophils % 2 % Basophils % 1 % Neutrophils # 4.5 (1.3-7.7) k/uL Lymphocytes # 0.8 L (1.0-4.8) k/uL Monocytes # 0.3 (0-1.0) k/uL Eosinophils # 0.1 (0-0.7) k/uL Basophils # 0.0 (0-0.2) k/uL Sodium 140 (137-145) mmol/L Potassium 3.8 (3.5-5.1) mmol/L Chloride 111 H (98-107) mmol/L Carbon Dioxide 22 (22-30) mmol/L Anion Gap 7 mmol/L BUN 42 H (9-20) mg/dL Creatinine 2.02 H (0.66-1.25) mg/dL Est GFR (CKD-EPI)AfAm 35 (>60 ml/min/1.73 sqM) Est GFR (CKD-EPI)NonAf 30 (>60 ml/min/1.73 sqM) Glucose 109 H (74-99) mg/dL POC Glucose (mg/dL) 103 (70-110) mg/dL POC Glu Pound Attendant ID Myke Veras Calcium 9.8 (8.4-10.2) mg/dL Total Bilirubin 1.0 (0.2-1.3) mg/dL AST 28 (17-59) U/L ALT <6 (4-49) U/L Alkaline Phosphatase 111 (38-126) U/L Total Protein 6.4 (6.3-8.2) g/dL Albumin 3.9 (3.5-5.0) g/dL Disposition Clinical Impression: Confusion, AMS (altered mental status), Dementia Disposition: ADMITTED IP TO THIS HOSP Condition: Stable Is patient prescribed a controlled substance at d/c from ED?: No Referrals: Eleuterio Simms MD [Primary Care Provider] - 1-2 days Time of Disposition: 01:07
[2023-09-08 00:49] LABS: Basophils % (A) 1 %; Eosinophils # (A) 0.1 k/uL (0-0.7); Eosinophils % (A) 2 %; HCT 42.8 % (39.0-53.0); HGB 14.1 gm/dL (13.0-17.5); Lymphocytes # (A) 0.8 k/uL (1.0-4.8); Lymphocytes % (A) 14 %; MCH 31.3 pg (25.0-35.0); MCV 94.8 fL (80.0-100.0); Monocytes # (A) 0.3 k/uL (0-1.0); Monocytes % (A) 5 %; Neutrophils # (A) 4.5 k/uL (1.3-7.7); Neutrophils % (A) 77 %; Platelet Count 142 k/uL (150-450); RBC 4.51 m/uL (4.30-5.90); RDW 13.4 % (11.5-15.5); WBC 5.8 k/uL (3.8-10.6)
[2023-09-08 00:53] LABS: ALT <6 U/L (4-49); AST 28 U/L (17-59); African American GFR (CKD) 35 (>60 ml/min/1.73 sqM); Albumin 3.9 g/dL (3.5-5.0); Alkaline Phosphatase 111 U/L (38-126); Anion Gap 7 mmol/L; Blood Urea Nitrogen 42 mg/dL (9-20); Calcium 9.8 mg/dL (8.4-10.2); Carbon Dioxide 22 mmol/L (22-30); Chloride 111 mmol/L (98-107); Glucose 109 mg/dL (74-99); Non-African American GFR(CKD) 30 (>60 ml/min/1.73 sqM); Potassium 3.8 mmol/L (3.5-5.1); Sodium 140 mmol/L (137-145); Total Protein 6.4 g/dL (6.3-8.2)
[2023-09-08] MEDS ORDERED: NALOXONE 0.4 MG/ML 1 ML VIAL IV PRN (01:05)
[2023-09-08] MEDS ORDERED: ACETAMINOPHEN TAB 325 MG TAB PO PRN (01:05)
[2023-09-08] MEDS: SODIUM CHLORIDE 0.9% 1,000 ML IV SCH (01:12)
[2023-09-08 09:41] LABS: Appearance,Urine Clear (Clear); Bilirubin,Urine Negative (Negative); Blood,Urine Negative (Negative); Color,Urine Light Yellow; Glucose,Urine (UA) Negative (Negative); Ketones,Urine Negative (Negative); Leukocyte Esterase,Urine Negative (Negative); Nitrite,Urine Negative (Negative); PH, Urine 5.5 (5.0-8.0); Protein,Urine Negative (Negative); Specific Gravity,Urine 1.015 (1.001-1.035); Urobilinogen,Urine <2.0 mg/dL (<2.0)
[2023-09-08] MEDS: CARBIDOPA-LEVODOPA 25-100 MG 1 EACH TAB PO SCH (13:10)
[2023-09-08] MEDS: HALOPERIDOL LACTATE 5 MG/ML 1 ML VIAL IM STA ×2 (15:44→15:45)
--- NOTE | 2023-09-08 17:13 | P.HPIM ---
History of Present Illness H&P Date: 09/08/23 Chief Complaint: Altered mental status 78-year-old male history of hypertension, dementia and Parkinson's presents from assisted living facility with reported aggression and agitation. Patient calm and cooperative at this time. Patient currently had been given Xanax which is prescribed to him prior to transport. Patient himself has no complaints at the time my evaluation. He is slow to respond. Denies pain complaints. Vital signs are stable. He has a normal blood sugar. Patient resides at an assisted living facility, given increase agitation and worsening dementia, it was felt that patient can no longer continue to reside at the assisted living facility at his level of care Blood work completed in ED reveals a WBC of 5.8, hemoglobin of 14.1 and platelet count of 142, sodium 140, potassium 3.8, BUNs/creatinine of 42/2.02 Review of Systems ROS unobtainable: due to mental status Past Medical History Past Medical History: Dementia, GERD/Reflux, Hypertension Additional Past Medical History / Comment(s): Parkinson's, CKD, metabolic encephalopy, gluacoma R eye History of Any Multi-Drug Resistant Organisms: None Reported Past Surgical History: Orthopedic Surgery Additional Past Surgical History / Comment(s): left knee Past Anesthesia/Blood Transfusion Reactions: No Reported Reaction Past Psychological History: No Psychological Hx Reported Smoking Status: Former smoker Past Alcohol Use History: None Reported Past Drug Use History: None Reported Medications and Allergies Home Medications Medication Instructions Recorded Confirmed Type Carbidopa/Levodopa 1 tab PO QID@,,,12/19/21 09/08/23 History [Carbidopa-Levodopa 25-100 Tab] Metoprolol Tartrate [Lopressor] 25 mg PO BID@08,199912/19/21 09/08/23 History amantadine HCL [Amantadine] 100 mg PO TID@0800,1299,199912/19/21 09/08/23 History Dorzolamide-Timol 2.23%/0.68% 1 drop LEFT EYE BID@799,199906/13/23 09/08/23 History [Cosopt] ALPRAZolam [Xanax] 0.25 mg PO BID PRN 08/31/23 09/08/23 History Famotidine [Pepcid] 20 mg PO DAILY@0809/08/23 09/08/23 History Folic Acid 1 mg PO DAILY@0800 09/08/23 09/08/23 History Losartan/Hydrochlorothiazide 1 tab PO DAILY@0800 09/08/23 09/08/23 History [Losartan-Hctz 100-12.5 mg Tab] Melatonin 10 mg PO HS 09/08/23 09/08/23 History QUEtiapine [SEROquel] 25 - 50 mg PO HS 09/08/23 09/08/23 History Allergies Allergy/AdvReac Type Severity Reaction Status Date / Time No Known Allergies Allergy Verified 09/08/23 12:17 Physical Exam Vitals: Vital Signs Temp Pulse Pulse Resp BP BP Pulse Ox 09/08/23 08:00 98.1 F 62 14 164/97 98 09/08/23 06:00 64 18 135/109 96 09/08/23 05:34 70 16 136/84 97 09/08/23 03:40 67 18 133/83 99 09/07/23 23:59 98.5 F 78 20 117/63 95 Intake and Output 09/07/23 09/08/23 09/08/23 22:59 06:59 14:59 Other: Weight 99.79 kg General appearance: alert, in no apparent distress Head exam: Present: atraumatic, normocephalic Eye exam: Present: normal appearance, PERRL ENT exam: Present: normal exam Neck exam: Present: normal inspection. Absent: tenderness, meningismus Respiratory exam: Present: normal lung sounds bilaterally. Absent: respiratory distress, wheezes Cardiovascular Exam: Present: regular rate, normal rhythm GI/Abdominal exam: Present: soft. Absent: distended, tenderness Extremities exam: Present: normal inspection, normal capillary refill Neurological exam: Present: alert, CN II-XII intact. Absent: oriented X3 (2), motor sensory deficit Psychiatric exam: Present: normal affect, normal mood Skin exam: Present: warm, dry, intact Results CBC & Chem 7: 09/08/23 00:13 09/08/23 00:13 Labs: Abnormal Lab Results - Last 24 Hours (Table) 09/08/23 09/08/23 Range/Units 00:13 00:13 Plt Count 142 L (150-450) k/uL Lymphocytes # 0.8 L (1.0-4.8) k/uL Chloride 111 H (98-107) mmol/L BUN 42 H (9-20) mg/dL Creatinine 2.02 H (0.66-1.25) mg/dL Glucose 109 H (74-99) mg/dL Assessment and Plan Assessment: 1. Altered mental status; likely progression of dementia with behavioral disturbance -- Patient is currently on Seroquel 25 to 50 mg p.o. nightly; will continue at a 50 mg dose -- Patient was quite agitated and not able to be redirected; received Haldol 4 mg IM x 1 -- We will consult psychiatry for further evaluation 2. Parkinson's disease; currently on amantadine 100 mg 3 times daily, Sinemet [id number] 4 times daily, folic acid 1 mg daily 3. Hypertension; losartanHCTZ at 100-12.5 mg daily; metoprolol 25 mg twice daily 4. Anxiety; Xanax 0.25 mg twice daily 5. Insomnia/sleep disorder; melatonin 10 mg p.o. nightly DVT prophylaxis; SCDs/subcu heparin CODE STATUS; full code
[2023-09-08] MEDS: MELATONIN 5 MG TABLET PO SCH (20:57)
[2023-09-08] MEDS: METOPROLOL TARTRATE 25 MG TAB PO SCH (20:57)
[2023-09-08] MEDS: QUEtiapine 50 MG TAB PO SCH (20:57)
[2023-09-08] MEDS: DORZOLAMIDE-TIMOLOL 2.23%/0.68 10ML BTL LEFT EYE SCH (21:50)
[2023-09-09 07:42] LABS: Basophils % (A) 1 %; Eosinophils # (A) 0.1 k/uL (0-0.7); Eosinophils % (A) 2 %; HCT 42.8 % (39.0-53.0); HGB 13.6 gm/dL (13.0-17.5); Lymphocytes # (A) 0.9 k/uL (1.0-4.8); Lymphocytes % (A) 20 %; MCH 30.8 pg (25.0-35.0); MCHC 31.9 g/dL (31.0-37.0); MCV 96.7 fL (80.0-100.0); Monocytes # (A) 0.3 k/uL (0-1.0); Monocytes % (A) 6 %; Neutrophils # (A) 3.3 k/uL (1.3-7.7); Neutrophils % (A) 70 %; Platelet Count 133 k/uL (150-450); RBC 4.42 m/uL (4.30-5.90); RDW 13.3 % (11.5-15.5); WBC 4.7 k/uL (3.8-10.6)
[2023-09-09 07:57] LABS: African American GFR (CKD) 45 (>60 ml/min/1.73 sqM); Anion Gap 5 mmol/L; Blood Urea Nitrogen 34 mg/dL (9-20); Calcium 9.5 mg/dL (8.4-10.2); Carbon Dioxide 25 mmol/L (22-30); Chloride 111 mmol/L (98-107); Glucose 83 mg/dL (74-99); Non-African American GFR(CKD) 39 (>60 ml/min/1.73 sqM); Potassium 3.8 mmol/L (3.5-5.1); Sodium 141 mmol/L (137-145)
[2023-09-09] MEDS: FOLIC ACID 1 MG TAB PO SCH (09:15)
[2023-09-09] MEDS: LOSARTAN 50 MG TAB PO SCH (09:15)
[2023-09-09] MEDS: FAMOTIDINE 20 MG TAB PO SCH (09:15)
[2023-09-09] MEDS: LOSARTAN-HCTZ 50-12.5 MG 1 EACH TAB PO SCH (09:16)
--- NOTE | 2023-09-09 16:38 | P.PN ---
Subjective Progress Note Date: 09/09/23 78-year-old male history of hypertension, dementia and Parkinson's presents from assisted living facility with reported aggression and agitation. Patient calm and cooperative at this time. Patient currently had been given Xanax which is prescribed to him prior to transport. Patient himself has no complaints at the time my evaluation. He is slow to respond. Denies pain complaints. Vital signs are stable. He has a normal blood sugar. Patient resides at an assisted living facility, given increase agitation and worsening dementia, it was felt that patient can no longer continue to reside at the assisted living facility at his level of care Blood work completed in ED reveals a WBC of 5.8, hemoglobin of 14.1 and platelet count of 142, sodium 140, potassium 3.8, BUNs/creatinine of 42/2.02 --Remains periodically agitated; calm and cooperative at this time; psych is consulted for evaluation of dementia with agitation -Lab work reveals creatinine trending down from 2.02 upon admission down to 1.65 Case management/TRUCK MECHANIC consulted for possible placement; patient awaits PT/OT evaluation Objective - Vital Signs Vital signs: Vital Signs Temp 98.4 F 09/09/23 07:10 Pulse 53 L 09/09/23 07:10 Resp 18 09/09/23 07:10 BP 163/85 09/09/23 07:10 Pulse Ox 98 09/09/23 07:10 FiO2 Intake & Output 09/08/23 09/09/23 09/09/23 18:59 06:59 18:59 Weight 99.79 kg Other: # Voids 1 3 1 # Bowel Movements 2 - Exam General appearance: alert, in no apparent distress Head exam: Present: atraumatic, normocephalic Eye exam: Present: normal appearance, PERRL ENT exam: Present: normal exam Neck exam: Present: normal inspection. Absent: tenderness, meningismus Respiratory exam: Present: normal lung sounds bilaterally. Absent: respiratory distress, wheezes Cardiovascular Exam: Present: regular rate, normal rhythm GI/Abdominal exam: Present: soft. Absent: distended, tenderness Extremities exam: Present: normal inspection, normal capillary refill Neurological exam: Present: alert, CN II-XII intact. Absent: oriented X3 (2), motor sensory deficit Psychiatric exam: Present: normal affect, normal mood Skin exam: Present: warm, dry, intact - Labs CBC & Chem 7: 09/09/23 06:51 09/09/23 06:51 Labs: Abnormal Lab Results - Last 24 Hours (Table) 09/09/23 09/09/23 Range/Units 06:51 06:51 Plt Count 133 L (150-450) k/uL Lymphocytes # 0.9 L (1.0-4.8) k/uL Chloride 111 H (98-107) mmol/L BUN 34 H (9-20) mg/dL Creatinine 1.65 H (0.66-1.25) mg/dL Assessment and Plan Assessment: 1. Altered mental status; likely progression of dementia with behavioral disturbance -- Patient is currently on Seroquel 25 to 50 mg p.o. nightly; will continue at a 50 mg dose -- Patient was quite agitated and not able to be redirected; received Haldol 4 mg IM x 1 -- We will consult psychiatry for further evaluation 2. Parkinson's disease; currently on amantadine 100 mg 3 times daily, Sinemet [id number] 4 times daily, folic acid 1 mg daily 3. Hypertension; losartanHCTZ at 100-12.5 mg daily; metoprolol 25 mg twice daily 4. Anxiety; Xanax 0.25 mg twice daily 5. Insomnia/sleep disorder; melatonin 10 mg p.o. nightly DVT prophylaxis; SCDs/subcu heparin CODE STATUS; full code
[2023-09-10] MEDS: LORazepam 0.5 MG TAB PO PRN (00:57)
[2023-09-10] MEDS: HALOPERIDOL LACTATE 5 MG/ML 1 ML VIAL IM STA ×2 (02:04→14:34)
[2023-09-10 08:54] LABS: BUN/Creat Ratio 19.69 Ratio (12.00-20.00); Blood Urea Nitrogen 31.5 mg/dL (9.0-27.0); Calcium 9.2 mg/dL (8.7-10.3); Carbon Dioxide 22.8 mmol/L (21.6-31.8); Chloride 110 mmol/L (96-109); Glucose 101 mg/dL (70-110); Potassium 4.1 mmol/L (3.5-5.5); Sodium 142 mmol/L (135-145)
[2023-09-10] MEDS: HEPARIN SODIUM,PORCINE 5,000 UNIT/ML 1 ML VIAL SQ SCH (11:05)
[2023-09-10] MEDS: FAMOTIDINE 20 MG/2 ML VIAL IV SCH (11:05)
[2023-09-10] MEDS ORDERED: OLANZapine 5 MG TAB PO PRN (14:33)
[2023-09-10] MEDS: QUEtiapine 25 MG TAB PO SCH (15:39)
--- NOTE | 2023-09-10 19:52 | P.CN ---
Psychiatric Consult - . Consult date: 09/10/23 Consult:: IDENTIFYING DATA: This patient is an 78 year old male with dementia and Parkinson's who presents due to agitation at his [facility] home. REASON FOR REFERRAL: Psychiatry was consulted for "dementia, agitation". HISTORY OF PRESENT ILLNESS: The patient presented to the hospital from his [facility] home due to agitation. He is a poor historian due to his dementia. Overnight, he received Ativan 0.5 mg po x 2 and Haldol 2 mg IM x 1. On my evaluation today, patient was found thrashing about his bed with sitter at bedside. He is repeatedly attempting to get out of bed, states he wants to go. He required myself and his sitter to help keep him in bed. Haldol 2 mg IV x 1 was given for agitation. He is alert and oriented to self and month/year. He is not oriented to place, he states he is at "[place]" and derails into nonsensical c hatter. He asks for his son Christiano who is not in the room/building. At this time, patient denies any suicidal or homicidal ideation, intent or plan. Patient denies any auditory or visual hallucinations. Patients denies drug, tobacco or alcohol use. PAST PSYCHIATRIC HISTORY: Patient has a a history of dementia. Patient is prescribed Xanax at his [facility] home. Patient denies any previous psychiatric hospitalizations. Patient denies any psychiatric outpatient follow-up. Patient denies any history of suicide attempts in the past. PAST MEDICAL HISTORY: Past Medical History: Dementia, GERD/Reflux, Hypertension Additional Past Medical History / Comment(s): Parkinson's, CKD, metabolic encepholopathy, glaucoma R eye History of Any Multi-Drug Resistant Organisms: None Reported Past Surgical History: Orthopedic Surgery Additional Past Surgical History / Comment(s): left knee Past Anesthesia/Blood Transfusion Reactions: No Reported Reaction Past Psychological History: No Psychological Hx Reported Smoking Status: Former smoker Past Alcohol Use History: None Reported Past Drug Use History: None Reported ALLERGIES: as per EMR. CHEMICAL DEPENDENCY HISTORY: as per HPI. FAMILY PSYCHIATRIC/SUBSTANCE USE HISTORY: denies SOCIAL HISTORY: Patient is originally from [facility] and is [place]. He has a (unclear if still living). He had 3 children (states he had only wanted two children but had three). He has a son named Christiano. He worked multiple jobs. MENTAL STATUS EXAM: General Appearance: Patient appears to be stated age, disheveled, fair hygiene and grooming, wearing hospital gown (unaware he exposed himself) and wearing diaper, has multiple healing abrasions on his legs, fair eye contact. Behavior: Patient is calmly lying in bed without any agitated behavior. Speech: Patient's speech is fluent and non-pressured. Mood/Affect: Patient reports their mood is "alright", affect is congruent Suicidality/Homicidality: Patient denies having any suicidal or homicidal ideation intent or plan. Perceptions: Patient denies any visual hallucinations and denies any auditory hallucinations. Though content/process: There is no evidence of any delusional thought content. Thought process is rambling. Memory and concentration: He is alert and oriented to self and month/year. He is not oriented to place, he states he is at "[place]". Judgment and insight: poor IMPRESSIONS: Dementia with behavioral disturbances PLAN: -At this time patient DOES NOT meet criteria for inpatient psychiatric admi ssion. -Patient DOES NOT have decision making capacity at this time and is unable to reason through and communicate/appreciate the risks, benefits and alternatives to treatment. -Delirium precautions recommended with patient including - avoiding use of narcotics and DELIVERY DRIVER sedatives, limit anticholinergic medications when possible, frequent re-orientation, minimize use of restraints, open window shades during the day and close them at night. -Would recommend the following medication changes/additions: Discontinue home Xanax and PRN Ativan to risk of delirium and falls. Start Remeron 7.5 mg QHS for sleep/irritability. Increase Seroquel to 25 mg BID (0900, 1300) plus 50 mg QHS for agitation/irritability. Start Zyprexa 5 mg Q6H PRN for agitation. Avoid use of typical antipsychotics (ie Haldol) since these may worsen Parkinson symptoms. -Monitor for constipation or pain since these can often be a source of agitation. -Continue 1:1 sitter for safety. -Cannot leave AMA at this time. Patient will need a petition and certification if attempting to leave AMA. -Communicated plan to patient's nurse. -Will continue to follow along. -Please contact with any questions.
[2023-09-10] MEDS: MIRTAZAPINE 15 MG TAB PO SCH (20:43)
--- NOTE | 2023-09-11 06:38 | P.PN ---
Subjective Progress Note Date: 09/10/23 78-year-old male history of hypertension, dementia and Parkinson's presents from assisted living facility with reported aggression and agitation. Patient calm and cooperative at this time. Patient currently had been given Xanax which is prescribed to him prior to transport. Patient himself has no complaints at the time my evaluation. He is slow to respond. Denies pain complaints. Vital signs are stable. He has a normal blood sugar. Patient resides at an assisted living facility, given increase agitation and worsening dementia, it was felt that patient can no longer continue to reside at the assisted living facility at his level of care Blood work completed in ED reveals a WBC of 5.8, hemoglobin of 14.1 and platelet count of 142, sodium 140, potassium 3.8, BUNs/creatinine of 42/2.02 --Remains periodically agitated; calm and cooperative at this time; psych is consulted for evaluation of dementia with agitation -Lab work reveals creatinine trending down from 2.02 upon admission down to 1.65 Case management/[employer] consulted for possible placement; patient awaits PT/OT evaluation 09/10/2023 Patient seen and evaluated in follow-up today being closely monitored. Patient was seen and evaluated by psychiatry with with adjustments to medications. continue seroquel at night. Patient is afebrile and no reports of chest pain or shortness of breath. Patient is sitting up in the chair eating chips currently. Oral intake is fair and only prefers certain foods. Case management is followi ng and looking into possible ECF for continued strength and mobility as patient continues with generalized weakness and gait dysfunction. Patient was recently [facility] into an [facility] home and case management working with them regarding discharge planning. Unsure if he is able to return. review of systems: Unable to obtain as patient has dementia Active Medications Acetaminophen (Acetaminophen Tab 325 Mg Tab) 650 mg PO Q6HR PRN PRN Reason: Mild Pain or Fever > 100.5 Amantadine HCl (Amantadine Hcl 100 Mg Cap) 100 mg PO TID@0800,1300,2000 [facility] Last Admin: 09/10/23 20:44 Dose: 100 mg Amlodipine Besylate (Amlodipine 5 Mg Tab) 5 mg PO DAILY [facility] Carbidopa/Levodopa (Carbidopa-Levodopa 25-100 Mg 1 Each Tab) 1 each PO QID@08,13,17,20 [facility] Last Admin: 09/10/23 20:43 Dose: 1 each Dorzolamide/Timolol (Dorzolamide-Timolol 2.23%/0.68 10ml Btl) 1 drops LEFT EYE BID@799,1999 [facility] Last Admin: 09/10/23 20:43 Dose: 1 drops Famotidine (Famotidine 20 Mg/2 Ml Vial) 20 mg IV Q24HR [facility] Folic Acid (Folic Acid 1 Mg Tab) 1 mg PO DAILY@0800 [facility] Last Admin: 09/10/23 08:02 Dose: Not Given HCTZ/Losartan Potassium (Losartan-Hctz 50-12.5 Mg 1 Each Tab) 1 each PO DAILY@ 0800 [facility] Last Admin: 09/10/23 07:57 Dose: 1 each Heparin Sodium (Porcine) (Heparin Sodium,Porcine 5,000 Unit/Ml 1 Ml Vial) 5,000 unit SQ Q12HR [facility] Last Admin: 09/10/23 22:56 Dose: 5,000 unit Sodium Chloride (Saline 0.9%) 1,000 mls @ 20 mls/hr IV .Q24H [facility] Last Admin: 09/10/23 20:45 Dose: 20 mls/hr Losartan Potassium (Losartan 50 Mg Tab) 50 mg PO DAILY@0800 [facility] Last Admin: 09/10/23 07:57 Dose: 50 mg Melatonin (Melatonin 5 Mg Tablet) 10 mg PO HS [facility] Last Admin: 09/10/23 20:43 Dose: 10 mg Metoprolol Tartrate (Metoprolol Tartrate 25 Mg Tab) 25 mg PO BID@08,1999 [facility] Last Admin: 09/10/23 20:43 Dose: 25 mg Mirtazapine (Mirtazapine 15 Mg Tab) 7.5 mg PO HS [facility] Last Admin: 09/10/23 20:43 Dose: 7.5 mg Naloxone HCl (Naloxone 0.4 Mg/Ml 1 Ml Vial) 0.2 mg IV Q2M PRN PRN Reason: Opioid Reversal Olanzapine (Olanzapine 5 Mg Tab) 5 mg PO Q6H PRN PRN Reason: Agitation Quetiapine Fumarate (Quetiapine 50 Mg Tab) 50 mg PO HS [facility] Last Admin: 09/10/23 20:44 Dose: 50 mg Quetiapine Fumarate (Quetiapine 25 Mg Tab) 25 mg PO 0800,1300 [facility] Last Admin: 09/10/23 15:39 Dose: 25 mg Physical exam: Gen: This is a 78-year-old male who is awake, alert oriented x 0-1, baseline, well-developed, elderly appearing, obese HEENT: Head is atraumatic, normocephalic. Pupils equal, round. Sclerae is anicteric. NECK: Supple. No JVD. No lymphadenopathy. No thyromegaly. LUNGS: Diminished breath sounds bilaterally otherwise clear to auscultation. No wheezes or rhonchi. No intercostal retractions. HEART: S1, S2 are muffled ABDOMEN: Soft. Bowel sounds are present. No masses. No tenderness. EXTREMITIES: No pedal edema. No calf tenderness. NEUROLOGICAL: Patient is awake, alert and oriented x0-1, baseline cranial nerves 2 through 12 are grossly intact. Diffusely weak Assessment: 1. Altered mental status; likely progression of dementia with behavioral disturbance 2. Parkinson's disease history 3. Hypertension; losartanHCTZ at 100-12.5 mg daily; metoprolol 25 mg twice daily 4. Anxiety 5. Insomnia/sleep disorder DVT prophylaxis; SCDs/subcu heparin GI prophylaxis full code Plan: Patient is continued on current medications and evaluated by psychiatry with adjustments noted. Awaiting PT/OT therapy evaluation as son would like patient to return to [facility] for continued strength and mobility Case management/social work following as patient was recently placed in an [facility] on [facility] and unsure if he can return back. Encouraged oral intake and recommend supervision with meals and aspiration precautions Continue with radiation safety officer Due to multiple complex medical issues, prognosis is guarded The impression and plan of care has been dictated by Sally Brenner, Nurse Practitioner as directed. Dr. Davey MD I have performed a history and examination and MDM of this patient, discussed the same with the dictator, and agree with the dictator's assessment and plan as written ,documented as a scribe. Based on total visit time, I have performed more than 50% of the visit. Objective - Vital Signs Vital signs: Vital Signs Temp 98.1 F 09/10/23 08:00 Pulse 72 09/10/23 08:00 Resp 17 09/10/23 08:00 BP 169/96 09/10/23 08:00 Pulse Ox 97 09/10/23 08:00 FiO2 Intake & Output 09/09/23 09/10/23 09/10/23 18:59 06:59 18:59 Intake Total 100 Balance 100 Intake: Oral 100 Other: # Voids 1 2 # Bowel Movements 2 - Labs CBC & Chem 7: 09/09/23 06:51 09/10/23 05:04 Labs: Abnormal Lab Results - Last 24 Hours (Table) 09/10/23 Range/Units 05:04 Chloride 110 H (96-109) mmol/L BUN 31.5 H (9.0-27.0) mg/dL Creatinine 1.6 H (0.6-1.5) mg/dL Est GFR (CKD-EPI) 43 L (>=60)
[2023-09-11 08:43] VITALS: RESP 19
[2023-09-11 08:53] LABS: Basophils # (A) 0.03 X 10*3/uL (0.00-0.10); Basophils % (A) 0.6 %; Eosinophils # (A) 0.13 X 10*3/uL (0.04-0.35); Eosinophils % (A) 2.5 %; HCT 38.9 % (39.6-50.0); HGB 13.1 g/dL (13.0-17.0); Lymphocytes # (A) 0.96 X 10*3/uL (0.90-5.00); Lymphocytes % (A) 18.7 %; MCH 31.6 pg (27.0-32.0); MCHC 33.7 g/dL (32.0-37.0); MCV 93.7 FL (80.0-97.0); Mean Platelet Volume 10.8 FL (9.5-12.2); Monocytes # (A) 0.44 X 10*3/uL (0.20-1.00); Monocytes % (A) 8.6 %; NRBC Per 100 WBC 0 X 10*3/uL (0.00-0.01); Neutrophils # (A) 3.56 X 10*3/uL (1.80-7.70); Neutrophils % (A) 69.2 %; Platelet Count 131 X 10*3/uL (140-440); RBC 4.15 X 10*6/uL (4.40-5.60); RDW 13.2 % (11.5-14.5); WBC 5.14 X 10*3/uL (4.50-10.00)
[2023-09-11 09:09] LABS: BUN/Creat Ratio 17.71 Ratio (12.00-20.00); Blood Urea Nitrogen 24.8 mg/dL (9.0-27.0); Calcium 9.3 mg/dL (8.7-10.3); Carbon Dioxide 22.6 mmol/L (21.6-31.8); Chloride 110 mmol/L (96-109); Glucose 75 mg/dL (70-110); Magnesium 1.9 mg/dL (1.5-2.4); Sodium 142 mmol/L (135-145)
[2023-09-11] MEDS: amLODIPine 5 MG TAB PO SCH (10:10)
[2023-09-11] MEDS: FAMOTIDINE 20 MG/2 ML VIAL IV SCH (13:19)
[2023-09-11 14:39] VITALS: BP 102/64; PULSE 67; TEMP 97.7
--- NOTE | 2023-09-11 14:52 | P.DS ---
Providers Date of admission: 09/08/23 01:05 Expected date of discharge: 09/11/23 Attending physician: Cruz Abraham MD Consults: 09/09/23 10:37 Consult Physician Routine Consulting Provider: Shahid Carrillo Consult Reason/Comments: Dementia/ aggitation Do you want consulting provider notified?: Already Contacted Primary care physician: Eleuterio Simms Hospital Course: Final diagnosis 1. Altered mental status; likely progression of dementia with behavioral disturbance 2. Parkinson's disease history 3. Hypertension 4. Anxiety 5. Insomnia/sleep disorder DVT prophylaxis; SCDs/subcu heparin GI prophylaxis full code Discharge disposition Patient is being discharged in a stable condition with guarded prognosis to [facility]. Patient will follow-up with Dr. Simms in the outpatient setting upon discharge. Patient is to continue with current medications. Total time taken is greater than 35 minutes. Hospital course This is a 78-year-old male who was recently admitted with acute altered mental status with behavioral disturbances and agitation while at [facility] being closely monitored. Patient likely progressing dementia with Parkinson's history. Patient evaluated by physical therapy recommending rehab and [facility] is willing to accept. Patient was recently at [facility] and did well and had been at [facility] for 1 week and having increased agitation. Lengthy discussion was had with the son as well about overall quality of life and prognosis and they are looking into possible hospice in the outpatient setting. Patient was evaluated by psychiatry with adjustments to medications made and mentation and behavior has been calm and cooperative this admission. Patient will be going to [facility] for continued PT/OT therapy. Currently no reports of chest pain, shortness of breath, or palpitations. Patient is afebrile. No reports of nausea or vomiting and patient is tolerating diet. Recommend aspiration precautions with head of the bed elevated 30 to 45 degrees at all times and supervision and assistance with meals. Patient has significant Parkinson's making it difficult to feed himself. Patient will be going to [facility] today. Overall guarded prognosis Physical exam: Gen: This is a 78-year-old male who is awake, alert and oriented x 1-2, baseline, well-developed, elderly appearing, obese HEENT: Head is atraumatic, normocephalic. Pupils equal, round. Sclerae is anicteric. NECK: Supple. No JVD. No lymphadenopathy. No thyromegaly. LUNGS: Diminished breath sounds bilaterally otherwise clear to auscultation. No wheezes or rhonchi. No intercostal retractions. HEART: S1, S2 are muffled ABDOMEN: Soft. Bowel sounds are present. No masses. No tenderness. EXTREMITIES: No pedal edema. No calf tenderness. NEUROLOGICAL: Patient is awake, alert and oriented x1-2. Baseline, tremors noted, diffusely weak Please refer to medication reconciliation sheet for a list of medications. The impression and plan of care has been dictated by Sally Brenner, Nurse Practitioner as directed. Dr. Davey MD I have performed a history and examination and MDM of this patient, discussed the same with the dictator, and agree with the dictator's assessment and plan as written ,documented as a scribe. Based on total visit time, I have performed more than 50% of the visit. Patient Condition at Discharge: Poor Plan - Discharge Summary Discharge Rx Participant: No New Discharge Prescriptions: New Heparin Sodium,Porcine (1 ml) [Heparin Sodium] 5,000 unit SQ Q12HR each QUEtiapine [SEROquel] 50 mg PO HS tab Acetaminophen Tab [Tylenol] 650 mg PO Q6HR PRN tab PRN Reason: Mild Pain Or Fever > 100.5 amLODIPine [Norvasc] 5 mg PO DAILY tab Mirtazapine [Remeron] 7.5 mg PO HS tab QUEtiapine [SEROquel] 25 mg PO 0800,1300 tab OLANZapine [ZyPREXA] 5 mg PO Q6H PRN tab PRN Reason: Agitation Continue Carbidopa/Levodopa [Carbidopa-Levodopa 25-100 Tab] 1 tab PO QID@08,13,17,20 amantadine HCL [Amantadine] 100 mg PO TID@0800,1300,1999 Dorzolamide-Timol 2.23%/0.68% [Cosopt] 1 drop LEFT EYE BID@0800,1999 Famotidine [Pepcid] 20 mg PO DAILY@0800 Folic Acid 1 mg PO DAILY@0800 Metoprolol Tartrate [Lopressor] 25 mg PO BID@0800,1999 Losartan/Hydrochlorothiazide [Losartan-Hctz 100-12.5 mg Tab] 1 tab PO DAILY@0800 Melatonin 10 mg PO HS Discontinued ALPRAZolam [Xanax] 0.25 mg PO BID PRN PRN Reason: Anxiety QUEtiapine [SEROquel] 25 - 50 mg PO HS Discharge Medication List Carbidopa/Levodopa [Carbidopa-Levodopa 25-100 Tab] 1 tab PO QID@,,,12/19/21 [History] Metoprolol Tartrate [Lopressor] 25 mg PO BID@08,199912/19/21 [History] amantadine HCL [Amantadine] 100 mg PO TID@0800,1300,199912/19/21 [History] Dorzolamide-Timol 2.23%/0.68% [Cosopt] 1 drop LEFT EYE BID@08,199906/13/23 [History] Famotidine [Pepcid] 20 mg PO DAILY@0809/08/23 [History] Folic Acid 1 mg PO DAILY@79909/08/23 [History] Losartan/Hydrochlorothiazide [Losartan-Hctz 100-12.5 mg Tab] 1 tab PO DAILY@0809/08/23 [History] Melatonin 10 mg PO HS 09/08/23 [History] Acetaminophen Tab [Tylenol] 650 mg PO Q6HR PRN tab 09/11/23 [Rx] Heparin Sodium,Porcine (1 ml) [Heparin Sodium] 5,000 unit SQ Q12HR each 09/11/23 [Rx] Mirtazapine [Remeron] 7.5 mg PO HS tab 09/11/23 [Rx] OLANZapine [ZyPREXA] 5 mg PO Q6H PRN tab 09/11/23 [Rx] QUEtiapine [SEROquel] 25 mg PO 0800,1300 tab 09/11/23 [Rx] QUEtiapine [SEROquel] 50 mg PO HS tab 09/11/23 [Rx] amLODIPine [Norvasc] 5 mg PO DAILY tab 09/11/23 [Rx] Follow up Appointment(s)/Referral(s): Eleuterio Simms MD [Primary Care Provider] - 1-2 days Activity/Diet/Wound Care/Special Instructions: Patient is going to [facility] as tolerated Continue taking medications as prescribed Follow-up with primary care provider outpatient Discharge Disposition: TRANSFER TO SNF/ECF
== END 2023-09-11 18:38 | DRG 57 ==
LOC: EC 23:53 → 4SSUR 09-08 01:05
PROVIDERS: ADMIT Internal Medicine; ATTEND Internal Medicine
DX: G20.A1 Parkinson's disease without dyskinesia, without mention of fluctuations (principal); F02.811 Dementia in other diseases classified elsewhere, unspecified severity, with agitation; F02.84 Dementia in other diseases classified elsewhere, unspecified severity, with anxiety; K21.9 Gastro-esophageal reflux disease without esophagitis; I12.9 Hypertensive chronic kidney disease with stage 1 through stage 4 chronic kidney disease, or unspecified chronic kidney disease; N18.9 Chronic kidney disease, unspecified; G47.00 Insomnia, unspecified; F41.9 Anxiety disorder, unspecified; Z87.891 Personal history of nicotine dependence; Z79.899 Other long term (current) drug therapy
CPT/HCPCS: 36415; 80048; 80053; 81003; 83735; 85025; 93005; 96360; 96361; 99285